=== PATIENT | female | born 1970 | race Caucasian/White ===

== ENCOUNTER → 2017-02-10 | Outpatient (CLI) | payer MEDICARE, OTHER ==
[2017-02-10 12:58] LABS: CH 31.7; CHCM 33.7; HCT 41.7 % (34.0-46.0); HDW 2.56; MCH 31.7 pg (25.0-35.0); MCHC 33.6 g/dL (31.0-37.0); MCV 94.5 fL (80.0-100.0); Mean Platelet Volume 6.7; RBC 4.41 m/uL (3.80-5.40); RDW 13.7 % (11.5-15.5); WBC 8.6 k/uL (3.8-10.6)
[2017-02-10 13:07] LABS: Anion Gap 8 mmol/L; Blood Urea Nitrogen 14 mg/dL (7-17); Carbon Dioxide 30 mmol/L (22-30); Chloride 107 mmol/L (98-107); Non-African American GFR(MDRD) >60 (>60 ml/min/1.73 sqM); Potassium 4.7 mmol/L (3.5-5.1); Sodium 145 mmol/L (137-145)
== END | disposition home or self-care (01) ==
LOC: LABWHC1 11:42
PROVIDERS: ATTEND Internal Medicine
DX: Z13.89 Encounter for screening for other disorder (principal)
CPT/HCPCS: 36415; 80051; 82565; 84520; 85027; 86850

== ENCOUNTER → 2017-02-19 | Outpatient (CLI) | payer MEDICARE, OTHER ==
--- NOTE | 2017-02-19 14:46 | CT ---
EXAMINATION TYPE: CT abdomen pelvis w con DATE OF EXAM: 02/19/2017 HISTORY abdominal and pelvic pain per order. Left-sided pain per patient. CT DLP: 1520mGycm Automated Exposure Control for Dose Reduction was Utilized. CONTRAST: CT scan of the abdomen and pelvis is performed with oral and with IV Contrast, patient injected with 100 mL of Omnipaque 300. COMPARISON: CT abdomen pelvis July 31, 2014. FINDINGS: LUNG BASES: No significant abnormality is appreciated. LIVER/GB: Cholecystectomy clips are now present. Liver remains diffusely low dense suggesting fatty i nfiltration. PANCREAS: No significant abnormality is seen. SPLEEN: No significant abnormality is seen. ADRENALS: There is redemonstration of 1.8 cm heterogeneous left adrenal mass, perhaps minimally enlar ged in size from prior study, still favored or presumed benign in etiology. This can BE confirmed wit h adrenal protocol CT or MRI study if desired. KIDNEYS: There is persistent asymmetric diminished size to right kidney versus left kidney in cranioc audal length. Right kidney is increased AP diameter suggesting it is oblique in position. There is sy mmetric cortical medullary uptake and excretion from both kidneys with increased fullness in right re nal pelvis but no suspicious calyceal dilatation, favor extrarenal pelvis. Bladder is distended in th e midline of the pelvis extending into the anterior upper abdomen and likely accounting for increased renal pelvic fullness bilaterally. BOWEL: The oral contrast reaches level of the hepatic flexure. There is no suspicious small or large bowel dilatation. There is single focal area of concentric wall thickening in the colon near level of the splenic flexure in the distal transverse colon on coronal image 28, this could reflect focal spa sm but neoplasm cannot be excluded. Advise colonoscopy follow-up. Finding is new from prior study. UTERUS/ADNEXA: Uterus is surgically absent. Occasional pelvic phleboliths are redemonstrated LYMPH NODES: No greater than 1cm abdominal or pelvic lymph nodes are appreciated. OSSEOUS STRUCTURES: No significant abnormality is seen. OTHER: No significant additional abnormality is seen. IMPRESSION: 1. No significant acute finding is seen to account for patient's symptoms. 2. Attention to left adrenal gland and distal transverse colon as detailed above.
== END | disposition home or self-care (01) ==
LOC: RADCTMAIN 13:30
PROVIDERS: ATTEND Internal Medicine
DX: E27.9 Disorder of adrenal gland, unspecified (principal); R10.9 Unspecified abdominal pain
CPT/HCPCS: 74177; Q9967

== ENCOUNTER 2017-03-09 09:28 | Day surgery (SDC) | payer MEDICARE, OTHER ==
[~2017-03-09 09:28] MED LIST: LACTATED RINGERS 1,000 ML IV SCH
[2017-03-09 10:42] VITALS: TEMP 98.6
[2017-03-09] MEDS ORDERED: LIDOCAINE 1% 20 ML VIAL (10MG/ML) FOR IV START INTRADERMA ONE (11:12)
[2017-03-09] MEDS ORDERED: fentaNYL (PF) 50 MCG/ML 2 ML AMP ONE (11:25)
[2017-03-09] MEDS ORDERED: PROPOFOL 10 MG/ML 20 ML VIAL IV ONE (11:25)
[2017-03-09] MEDS ORDERED: LIDOCAINE 1% INJ 10MG/ML (20 ML MDV) ONE (11:25)
--- NOTE | 2017-03-09 11:51 | P.PCN ---
Date of Procedure: 03/09/17 Preoperative Diagnosis: Postoperative Diagnosis: Procedure(s) Performed: Procedure: Total colonoscopy. Preoperative diagnosis: Abdominal pain, change in bowel habits and abnormal CT of the abdomen. Postoperative diagnosis: Sigmoid diverticulosis with no evidence of acute diverticulitis, strictures, polyps or cancer. Preparation: HalfLytely prep. Sedation: Was provided by anesthesia. Brief clinical history: The patient is a 46-year-old female who is referred for this evaluation because of abdominal pain and change in bowel habits and the finding of abnormality around the splenic flexure on CT. The patient, apparently, has been having abdominal pain since her gallbladder surgery 3 or 4 years ago and she has been having small stools. I have performed an upper endoscopy in September 2014 for abdominal pain and reflux symptoms and that showed mild gastritis and duodenitis and small sliding hiatal hernia. Procedure: With the patient on her left lateral decubitus position and after informed consent and adequate sedation, the perianal area was inspected and it did not show any fissures or fistulas. There were no masses felt on digital rectal examination. The Olympus CFQ 160L video colonoscope was then inserted in the rectum in the usual fashion and advanced to the cecum. There were a few small diverticular orifices seen scattered in the sigmoid but I saw no evidence of acute diverticulitis or strictures. The area of abnormality on CT around the splenic flexure appeared completely normal on this exam today. No polyps or tumors were seen. The mucosa appeared healthy. I retroflexed the endoscope in the rectum before the endoscope was withdrawn. The patient tolerated the procedure well. Plan: The patient was reassured. Discussed dietary measures. She will follow- up with you as planned. Further plans based on her course. Implants: Indications for Procedure: Operative Findings: Description of Procedure:
[2017-03-09 11:56] VITALS: RESP 18
[2017-03-09 12:14] VITALS: BP 133/86; PULSE 74
== END 2017-03-09 12:43 | disposition home or self-care (01) ==
LOC: ORWHC2ENDO 09:28
DX: K57.30 Diverticulosis of large intestine without perforation or abscess without bleeding (principal); J44.9 Chronic obstructive pulmonary disease, unspecified; I25.10 Atherosclerotic heart disease of native coronary artery without angina pectoris; K21.9 Gastro-esophageal reflux disease without esophagitis; G47.33 Obstructive sleep apnea (adult) (pediatric); Z79.52 Long term (current) use of systemic steroids; Z79.899 Other long term (current) drug therapy; Z88.6 Allergy status to analgesic agent; Z88.0 Allergy status to penicillin
CPT/HCPCS: 45378; J2001; J3010; J2704

== ENCOUNTER 2017-04-11 03:07 | Emergency (ER) | payer MEDICARE, OTHER ==
[2017-04-11 04:04] LABS: Appearance,Urine Clear (Clear); Basophils # (A) 0.1 k/uL (0-0.2); Basophils % (A) 1 %; Bilirubin,Urine Negative (Negative); CH 32.4; CHCM 34.9; Eosinophils # (A) 0.2 k/uL (0-0.7); Eosinophils % (A) 2 %; Glucose,Urine (UA) Negative (Negative); HCT 44.2 % (34.0-46.0); HDW 2.42; HGB 14.9 gm/dL (11.4-16.0); Ketones,Urine Negative (Negative); Leukocyte Esterase,Urine Negative (Negative); Luc # (Auto) 0.24; Luc % (Auto) 2; Lymphocytes # (A) 3.2 k/uL (1.0-4.8); Lymphocytes % (A) 31 %; MCH 31.4 pg (25.0-35.0); MCHC 33.7 g/dL (31.0-37.0); MCV 93.2 fL (80.0-100.0); Mean Platelet Volume 7.4; Monocytes # (A) 0.4 k/uL (0-1.0); Monocytes % (A) 4 %; Neutrophils % (A) 60 %; Nitrite,Urine Negative (Negative); PH, Urine 5.5 (5.0-8.0); Protein,Urine Negative (Negative); RBC 4.75 m/uL (3.80-5.40); RDW 14.3 % (11.5-15.5); Specific Gravity,Urine 1.007 (1.001-1.035); UA Billing (MACRO vs. MICRO) CHEM; Urobilinogen,Urine <2.0 mg/dL (<2.0); WBC 10.1 k/uL (3.8-10.6); WBC (Perox) 9.74
[2017-04-11 04:13] LABS: ALT 59 U/L (9-52); AST 45 U/L (14-36); Alkaline Phosphatase 73 U/L (38-126); Amylase 72 U/L (30-110); Anion Gap 13 mmol/L; Blood Urea Nitrogen 12 mg/dL (7-17); Carbon Dioxide 21 mmol/L (22-30); Chloride 108 mmol/L (98-107); Glucose 119 mg/dL (74-99); Non-African American GFR(MDRD) >60 (>60 ml/min/1.73 sqM); Potassium 4.9 mmol/L (3.5-5.1); Sodium 142 mmol/L (137-145); Total Bilirubin 0.8 mg/dL (0.2-1.3); Total Protein 8.2 g/dL (6.3-8.2)
--- NOTE | 2017-04-11 04:35 | XR ---
EXAM: XR Abdomen Complete, 2 or More Views CLINICAL HISTORY: Abdominal pain. Left flank pain after colonoscopy in February 2017. Diarrhea. History of appendectomy, hysterectomy. TECHNIQUE: 2 frontal upright views of the abdomen. COMPARISON: None FINDINGS: Intraperitoneal space: No free air. Gastrointestinal tract: Unremarkable. No dilation. Organs: Surgical clips are visualized within the right upper quadrant from cholecystectomy. Bones/joints: Unremarkable. IMPRESSION: No acute findings.
[2017-04-11] MEDS ORDERED: ONDANSETRON 4 MG/2 ML VIAL IVP STA (05:36)
[2017-04-11] MEDS ORDERED: MORPHINE SULFATE 4 MG/ML SYRINGE IV STA ×2 (05:36→07:27)
--- NOTE | 2017-04-11 06:10 | CT ---
EXAM: CT ABDOMEN + PELVIS Without Contrast INDICATION: 46 year-old female with lower quadrant pain. COMPARISON: 02/19/2017. TECHNIQUE: Multiple axial CT images of the abdomen and pelvis without contrast material. Reformatted coronal and sagittal images are submitted. DOSE: CTDI is 15.4 mGy and DLP is 733.7 mGy-cm. DOSE REDUCTION: This CT exam was performed using one or more of the following dose reduction techniques: automated exposure control, adjustment of the mA and/or kV according to patient size, and/or use of iterative reconstruction technique. FINDINGS: The lung bases are clear. The liver and spleen are normal in size and free of mass lesions. Stable size and appearance of the left adrenal nodule. The gallbladder is surgically absent. The right adrenal gland is unremarkable. There is suggestion of a right extrarenal pelvis. The kidneys are otherwise normal in size and contour. No stones, lesions or hydronephrosis. The appendix is well-visualized. The remainder of the GI tract is unremarkable. Arterial calcifications. No aneurysm. No adenopathy or extraluminal air. The osseous structures are intact. Surgical change of hysterectomy. IMPRESSION: 1. No acute abdominal pelvic abnormality. 2. Stable in size and appearance of the left adrenal nodule. 3. Cholecystectomy and hysterectomy..
--- NOTE | 2017-04-11 07:06 | ED ---
Abdominal Pain HPI - General Chief Complaint: Abdominal Pain Stated Complaint: Back/Flank Pain Time Seen by Provider: 04/11/17 04:45 Source: patient Mode of arrival: ambulatory Limitations: no limitations - Related Data Home Medications Medication Instructions Recorded Confirmed Ranitidine HCl [Zantac] 150 mg PO BID 05/29/14 04/11/17 Beclomethasone Dipropionate [Qvar 2 puff INHALATION RT-BID 05/11/16 04/11/17 80 mcg/puff] EPINEPHrine (Auto Inject) [Epipen] 0.3 mg IM ONCE PRN 05/11/16 04/11/17 Nitroglycerin Sl Tabs [Nitrostat] 0.4 mg SUBLINGUAL Q5H PRN 05/11/16 04/11/17 Loratadine [Claritin] 10 mg PO HS 03/04/17 04/11/17 Previous Rx's Medication Instructions Recorded Dicyclomine [Bentyl] 20 mg PO QID #15 tablet 04/11/17 Allergies Allergy/AdvReac Type Severity Reaction Status Date / Time venom-honey bee Allergy Severe Anaphylaxis Verified 04/11/17 03:32 [bee venom (honey bee)] amoxicillin [Amoxicillin] Allergy Anaphylaxis Verified 04/11/17 03:32 aspirin Allergy Anaphylaxis Verified 04/11/17 03:32 chocolate flavor Allergy Swelling Verified 04/11/17 03:32 hydrocodone [From [place]] Allergy Rash/Hives Verified 04/11/17 03:32 NSAIDS (Non-Steroidal Allergy Swelling Verified 04/11/17 03:32 Anti-Inflamma Penicillins Allergy Anaphylaxis Verified 04/11/17 03:32 prednisone Allergy Anaphylaxis Verified 04/11/17 03:32 propoxyphene napsylate Allergy Rash/Hives Verified 04/11/17 03:32 [From Darvocet-N] strawberry [[place]] Allergy Swelling Verified 04/11/17 03:32 tomato [Tomato] Allergy Swelling Verified 04/11/17 03:32 zonisamide [From Zonegran] Allergy Swelling Verified 04/11/17 03:32 Review of Systems ROS Statement: Those systems with pertinent positive or pertinent negative responses have been documented in the HPI. ROS Other: All systems not noted in ROS Statement are negative. Past Medical History Past Medical History: Asthma, COPD, GERD/Reflux, Sleep Apnea/CPAP/BIPAP, Thyroid Disorder Additional Past Medical History / Comment(s): OVARIAN CYST. USES NO CPAP. CHonic back pain (buldging discs). Hiatal hernia. MIGRAINES. History of Any Multi-Drug Resistant Organisms: MRSA Date of last positivie culture/infection: 08/13/2007 MDRO Source:: LEFT KNEE Past Surgical History: Appendectomy, Breast Surgery, Cholecystectomy, Hysterectomy, Joint Replacement, Orthopedic Surgery Additional Past Surgical History / Comment(s): Total of 13 surgeries on her L knee including lt knee replacement x 3, lt leg contains rods, L benign breast mass removed, EGD with BX Past Anesthesia/Blood Transfusion Reactions: No Reported Reaction Additional Past Anesthesia/Blood Transfusion Reaction / Comment(s): Pt received blood with one of her L knee surgeries without reaction X 2. Past Psychological History: No Psychological Hx Reported Smoking Status: Current every day smoker Past Alcohol Use History: None Reported Past Drug Use History: None Reported - Past Family History Mother Family Medical History: Deep Vein Thrombosis (DVT) Additional Family Medical History / Comment(s): Mother of a blood clot that went to her heart. Father Family Medical History: No Reported History Additional Family Medical History / Comment(s): Father of "natural causes" at the age of 85 yrs. General Exam Limitations: no limitations Course Vital Signs 04/11/17 04/11/17 03:28 05:44 Temperature 98.4 F 98.7 F Pulse Rate 96 86 Respiratory 18 16 Rate Blood Pressure 145/65 146/65 O2 Sat by Pulse 98 98 Oximetry Medical Decision Making - Lab Data Result diagrams: 04/11/17 03:39 04/11/17 03:39 Lab Results 04/11/17 04/11/17 04/11/17 Range/Units 03:39 03:39 03:39 WBC 10.1 (3.8-10.6) k/uL RBC 4.75 (3.80-5.40) m/uL Hgb 14.9 (11.4-16.0) gm/dL Hct 44.2 (34.0-46.0) % MCV 93.2 (80.0-100.0) fL MCH 31.4 (25.0-35.0) pg MCHC 33.7 (31.0-37.0) g/dL RDW 14.3 (11.5-15.5) % Plt Count 273 (150-450) k/uL Neutrophils % 60 % Lymphocytes % 31 % Monocytes % 4 % Eosinophils % 2 % Basophils % 1 % Neutrophils # 6.0 (1.3-7.7) k/uL Lymphocytes # 3.2 (1.0-4.8) k/uL Monocytes # 0.4 (0-1.0) k/uL Eosinophils # 0.2 (0-0.7) k/uL Basophils # 0.1 (0-0.2) k/uL Sodium 142 (137-145) mmol/L Potassium 4.9 (3.5-5.1) mmol/L Chloride 108 H (98-107) mmol/L Carbon Dioxide 21 L (22-30) mmol/L Anion Gap 13 mmol/L BUN 12 (7-17) mg/dL Creatinine 0.70 (0.52-1.04) mg/dL Est GFR (MDRD) Af Amer >60 (>60 ml/min/1.73 sqM) Est GFR (MDRD) Non-Af >60 (>60 ml/min/1.73 sqM) Glucose 119 H (74-99) mg/dL Calcium 10.0 (8.4-10.2) mg/dL Total Bilirubin 0.8 (0.2-1.3) mg/dL AST 45 H (14-36) U/L ALT 59 H (9-52) U/L Alkaline Phosphatase 73 (38-126) U/L Total Protein 8.2 (6.3-8.2) g/dL Albumin 4.8 (3.5-5.0) g/dL Amylase 72 (30-110) U/L Lipase 139 (23-300) U/L Urine Color Urine Appearance (Clear) Urine pH (5.0-8.0) Ur Specific [place] (1.001-1.035) Urine Protein (Negative) Urine Glucose (UA) (Negative) Urine Ketones (Negative) Urine Blood (Negative) Urine Nitrite (Negative) Urine Bilirubin (Negative) Urine Urobilinogen (<2.0) mg/dL Ur Leukocyte Esterase (Negative) Urine HCG, Qual Not Detected (Not Detectd) 04/11/17 Range/Units 03:39 WBC (3.8-10.6) k/uL RBC (3.80-5.40) m/uL Hgb (11.4-16.0) gm/dL Hct (34.0-46.0) % MCV (80.0-100.0) fL MCH (25.0-35.0) pg MCHC (31.0-37.0) g/dL RDW (11.5-15.5) % Plt Count (150-450) k/uL Neutrophils % % Lymphocytes % % Monocytes % % Eosinophils % % Basophils % % Neutrophils # (1.3-7.7) k/uL Lymphocytes # (1.0-4.8) k/uL Monocytes # (0-1.0) k/uL Eosinophils # (0-0.7) k/uL Basophils # (0-0.2) k/uL Sodium (137-145) mmol/L Potassium (3.5-5.1) mmol/L Chloride (98-107) mmol/L Carbon Dioxide (22-30) mmol/L Anion Gap mmol/L BUN (7-17) mg/dL Creatinine (0.52-1.04) mg/dL Est GFR (MDRD) Af Amer (>60 ml/min/1.73 sqM) Est GFR (MDRD) Non-Af (>60 ml/min/1.73 sqM) Glucose (74-99) mg/dL Calcium (8.4-10.2) mg/dL Total Bilirubin (0.2-1.3) mg/dL AST (14-36) U/L ALT (9-52) U/L Alkaline Phosphatase (38-126) U/L Total Protein (6.3-8.2) g/dL Albumin (3.5-5.0) g/dL Amylase (30-110) U/L Lipase (23-300) U/L Urine Color Yellow Urine Appearance Clear (Clear) Urine pH 5.5 (5.0-8.0) Ur Specific [place] 1.007 (1.001-1.035) Urine Protein Negative (Negative) Urine Glucose (UA) Negative (Negative) Urine Ketones Negative (Negative) Urine Blood Negative (Negative) Urine Nitrite Negative (Negative) Urine Bilirubin Negative (Negative) Urine Urobilinogen <2.0 (<2.0) mg/dL Ur Leukocyte Esterase Negative (Negative) Urine HCG, Qual (Not Detectd) Disposition Clinical Impression: Abdominal pain Disposition: HOME SELF-CARE Condition: Good Instructions: Abdominal Pain (ED) Prescriptions: Dicyclomine [Bentyl] 20 mg PO QID #15 tablet Referrals: Paula Hudson MD [Primary Care Provider] - 1-2 days
[2017-04-11 08:10] VITALS: BP 135/60; PULSE 88; RESP 20; TEMP 97.7
== END 2017-04-11 08:14 | disposition home or self-care (01) ==
LOC: EC 03:07
DX: R10.9 Unspecified abdominal pain (principal); J44.9 Chronic obstructive pulmonary disease, unspecified; K21.9 Gastro-esophageal reflux disease without esophagitis; F17.200 Nicotine dependence, unspecified, uncomplicated; Z90.49 Acquired absence of other specified parts of digestive tract; Z91.018 Allergy to other foods; Z88.0 Allergy status to penicillin; Z88.6 Allergy status to analgesic agent; Z91.030 Bee allergy status; Z88.5 Allergy status to narcotic agent; Z88.8 Allergy status to other drugs, medicaments and biological substances; Z91.02 Food additives allergy status; Z79.51 Long term (current) use of inhaled steroids; Z79.899 Other long term (current) drug therapy
CPT/HCPCS: 36415; 80053; 82150; 83690; 85025; 81003; 81025; 74000; 74176; 99284; 96374; 96376; 96375; J2270; J2405

== ENCOUNTER 2017-04-11 18:36 | Observation (INO) | payer MEDICARE, OTHER ==
[2017-04-11] MEDS ORDERED: MORPHINE SULFATE 4 MG/ML SYRINGE IVP STA (20:17)
[2017-04-11] MEDS ORDERED: SODIUM CHLORIDE 0.9% 1,000 ML IV ONE (20:17)
[2017-04-11] MEDS ORDERED: ONDANSETRON 4 MG/2 ML VIAL IVP STA (20:17)
--- NOTE | 2017-04-11 20:19 | ED ---
Abdominal Pain HPI - General Chief Complaint: Abdominal Pain Stated Complaint: abd and back pain Time Seen by Provider: 04/11/17 20:01 Source: patient, RN notes reviewed Mode of arrival: ambulatory Limitations: no limitations - History of Present Illness Initial Comments: Patient is a 46-year-old female presents to the emergency room for evaluation of abdominal pain. patient states she has a history of left lower quadrant pain. Patient states she had a colonoscopy in mid February due to pain by Dr. Valdes. Patient states ever since she's been having worsening pain along with diarrhea. Patient states that she has not followed up with Dr. Valdes regarding her pain since the colonoscopy. Patient states she came here this morning with pain. Patient states they did a CT of abdomen/pelvis and blood work and sent her home. Patient states she is having worsening pain and is now having nausea and vomiting. Patient states she is having on and off chills. Patient states she's been having on and off diarrhea. Patient denies chest pain or shortness of breath. Patient denies dizziness. Patient states she has a history of cholecystectomy, appendectomy and total hysterectomy. Patient denies history of bowel obstructions. - Related Data Home Medications Medication Instructions Recorded Confirmed Ranitidine HCl [Zantac] 150 mg PO BID 05/29/14 04/11/17 Beclomethasone Dipropionate [Qvar 2 puff INHALATION RT-BID 05/11/16 04/11/17 80 mcg/puff] EPINEPHrine (Auto Inject) [Epipen] 0.3 mg IM ONCE PRN 05/11/16 04/11/17 Nitroglycerin Sl Tabs [Nitrostat] 0.4 mg SUBLINGUAL Q5H PRN 05/11/16 04/11/17 Loratadine [Claritin] 10 mg PO DAILY PRN 03/04/17 04/11/17 Allergies Allergy/AdvReac Type Severity Reaction Status Date / Time venom-honey bee Allergy Severe Anaphylaxis Verified 04/11/17 20:03 [bee venom (honey bee)] amoxicillin [Amoxicillin] Allergy Anaphylaxis Verified 04/11/17 20:03 aspirin Allergy Anaphylaxis Verified 04/11/17 20:03 chocolate flavor Allergy Swelling Verified 04/11/17 20:03 hydrocodone [From [place]] Allergy Rash/Hives Verified 04/11/17 20:03 NSAIDS (Non-Steroidal Allergy Swelling Verified 04/11/17 20:03 Anti-Inflamma Penicillins Allergy Anaphylaxis Verified 04/11/17 20:03 prednisone Allergy Anaphylaxis Verified 04/11/17 20:03 propoxyphene napsylate Allergy Rash/Hives Verified 04/11/17 20:03 [From Darvocet-N] strawberry [[place]] Allergy Swelling Verified 04/11/17 20:03 tomato [Tomato] Allergy Swelling Verified 04/11/17 20:03 zonisamide [From Zonegran] Allergy Swelling Verified 04/11/17 20:03 Review of Systems ROS Statement: Those systems with pertinent positive or pertinent negative responses have been documented in the HPI. ROS Other: All systems not noted in ROS Statement are negative. Past Medical History Past Medical History: Asthma, COPD, GERD/Reflux, Sleep Apnea/CPAP/BIPAP, Thyroid Disorder Additional Past Medical History / Comment(s): OVARIAN CYST. USES NO CPAP. CHonic back pain (buldging discs). Hiatal hernia. MIGRAINES. History of Any Multi-Drug Resistant Organisms: MRSA Date of last positivie culture/infection: 08/13/2007 MDRO Source:: LEFT KNEE Past Surgical History: Appendectomy, Breast Surgery, Cholecystectomy, Hysterectomy, Joint Replacement, Orthopedic Surgery Additional Past Surgical History / Comment(s): Total of 13 surgeries on her L knee including lt knee replacement x 3, lt leg contains rods, L benign breast mass removed, EGD with BX Past Anesthesia/Blood Transfusion Reactions: No Reported Reaction Additional Past Anesthesia/Blood Transfusion Reaction / Comment(s): Pt received blood with one of her L knee surgeries without reaction X 2. Past Psychological History: No Psychological Hx Reported Smoking Status: Current every day smoker Past Alcohol Use History: None Reported Past Drug Use History: None Reported - Past Family History Mother Family Medical History: Deep Vein Thrombosis (DVT) Additional Family Medical History / Comment(s): Mother of a blood clot that went to her heart. Father Family Medical History: No Reported History Additional Family Medical History / Comment(s): Father of "natural causes" at the age of 85 yrs. General Exam - General Exam Comments Initial Comments: Laying in exam room, no acute distress. Limitations: no limitations General appearance: alert, in no apparent distress Head exam: Present: atraumatic, normocephalic, normal inspection Eye exam: Present: normal appearance ENT exam: Present: normal exam Neck exam: Present: normal inspection Respiratory exam: Present: normal lung sounds bilaterally. Absent: respiratory distress Cardiovascular Exam: Present: regular rate, normal rhythm, normal heart sounds GI/Abdominal exam: Present: soft, tenderness (LUQ/LLQ), normal bowel sounds. Absent: distended, guarding, rebound, rigid Extremities exam: Present: normal inspection Back exam: Present: normal inspection Neurological exam: Present: alert, oriented X3, CN II-XII intact, normal gait Psychiatric exam: Present: normal affect, normal mood Skin exam: Present: warm, dry, intact, normal color. Absent: rash Course Vital Signs 04/11/17 04/11/17 18:51 21:53 Temperature 97.5 F L 97.5 F L Pulse Rate 90 77 Respiratory 20 16 Rate Blood Pressure 127/60 136/60 O2 Sat by Pulse 98 Oximetry Medical Decision Making - Medical Decision Making Patient is a 46-year-old female presents to the emergency room for evaluation of abdominal pain. Patient was seen this morning and was sent home. Today, she is having worsening pain associated with nausea and vomiting. Liver enzymes and amylase/lipase are elevated compared to this morning. Case discussed Dr. Sheppard. Dr. Sheppard discussed case with Dr. Pedroza who agreed to admit patient for pancreatitis/failed outpatient treatment. - Lab Data Result diagrams: 04/11/17 20:50 04/11/17 20:50 Lab Results 04/11/17 04/11/17 04/11/17 Range/Units 20:37 20:50 20:50 WBC 9.4 (3.8-10.6) k/uL RBC 4.92 (3.80-5.40) m/uL Hgb 15.4 (11.4-16.0) gm/dL Hct 46.2 H (34.0-46.0) % MCV 93.9 (80.0-100.0) fL MCH 31.2 (25.0-35.0) pg MCHC 33.3 (31.0-37.0) g/dL RDW 14.2 (11.5-15.5) % Plt Count 277 (150-450) k/uL Neutrophils % 68 % Lymphocytes % 23 % Monocytes % 4 % Eosinophils % 2 % Basophils % 1 % Neutrophils # 6.5 (1.3-7.7) k/uL Lymphocytes # 2.2 (1.0-4.8) k/uL Monocytes # 0.4 (0-1.0) k/uL Eosinophils # 0.2 (0-0.7) k/uL Basophils # 0.1 (0-0.2) k/uL Sodium 143 (137-145) mmol/L Potassium 4.5 (3.5-5.1) mmol/L Chloride 107 (98-107) mmol/L Carbon Dioxide 24 (22-30) mmol/L Anion Gap 12 mmol/L BUN 13 (7-17) mg/dL Creatinine 0.80 (0.52-1.04) mg/dL Est GFR (MDRD) Af Amer >60 (>60 ml/min/1.73 sqM) Est GFR (MDRD) Non-Af >60 (>60 ml/min/1.73 sqM) Glucose 103 H (74-99) mg/dL Calcium 10.1 (8.4-10.2) mg/dL Magnesium 2.2 (1.6-2.3) mg/dL Total Bilirubin 0.7 (0.2-1.3) mg/dL AST 271 H (14-36) U/L ALT 264 H (9-52) U/L Alkaline Phosphatase 109 (38-126) U/L Total Protein 8.1 (6.3-8.2) g/dL Albumin 4.7 (3.5-5.0) g/dL Amylase 165 H (30-110) U/L Lipase 806 H (23-300) U/L Urine Color Yellow Urine Appearance Cloudy H (Clear) Urine pH 5.5 (5.0-8.0) Ur Specific [place] 1.024 (1.001-1.035) Urine Protein 1+ H (Negative) Urine Glucose (UA) Negative (Negative) Urine Ketones Negative (Negative) Urine Blood Negative (Negative) Urine Nitrite Negative (Negative) Urine Bilirubin Negative (Negative) Urine Urobilinogen 3.0 (<2.0) mg/dL Ur Leukocyte Esterase Negative (Negative) Urine RBC 1 (0-5) /hpf Urine WBC 2 (0-5) /hpf Ur Squamous Epith Cells 2 (0-4) /hpf Hyaline Casts 2 (0-2) /lpf Urine Mucus Few H (None) /hpf Disposition Clinical Impression: Failure of outpatient treatment, Pancreatitis Disposition: ADMITTED IP TO THIS HOSP Condition: Stable Referrals: Paula Hudson MD [Primary Care Provider] - 1-2 days Decision Date: 04/11/17
[2017-04-11 20:50] LABS: Appearance,Urine Cloudy (Clear); Bilirubin,Urine Negative (Negative); Glucose,Urine (UA) Negative (Negative); Ketones,Urine Negative (Negative); Leukocyte Esterase,Urine Negative (Negative); Mucus,Urine Few /hpf; Nitrite,Urine Negative (Negative); PH, Urine 5.5 (5.0-8.0); Particle Count 9982; Protein,Urine 1+ (Negative); RBC,Urine 1 /hpf (0-5); Specific Gravity,Urine 1.024 (1.001-1.035); Squamous Epithelial Cell,Urine 2 /hpf (0-4); UA Billing (MACRO vs. MICRO) MICRO; WBC,Urine 2 /hpf (0-5)
[2017-04-11 21:06] LABS: Basophils # (A) 0.1 k/uL (0-0.2); Basophils % (A) 1 %; CH 32.3; CHCM 34.5; Eosinophils # (A) 0.2 k/uL (0-0.7); Eosinophils % (A) 2 %; HCT 46.2 % (34.0-46.0); HDW 2.45; HGB 15.4 gm/dL (11.4-16.0); Luc # (Auto) 0.11; Luc % (Auto) 1; Lymphocytes # (A) 2.2 k/uL (1.0-4.8); Lymphocytes % (A) 23 %; MCH 31.2 pg (25.0-35.0); MCHC 33.3 g/dL (31.0-37.0); MCV 93.9 fL (80.0-100.0); Mean Platelet Volume 7.7; Monocytes # (A) 0.4 k/uL (0-1.0); Monocytes % (A) 4 %; Neutrophils # (A) 6.5 k/uL (1.3-7.7); Neutrophils % (A) 68 %; RBC 4.92 m/uL (3.80-5.40); RDW 14.2 % (11.5-15.5); WBC 9.4 k/uL (3.8-10.6); WBC (Perox) 9.83
[2017-04-11 21:16] LABS: ALT 264 U/L (9-52); AST 271 U/L (14-36); Alkaline Phosphatase 109 U/L (38-126); Amylase 165 U/L (30-110); Anion Gap 12 mmol/L; Blood Urea Nitrogen 13 mg/dL (7-17); Calcium 10.1 mg/dL (8.4-10.2); Carbon Dioxide 24 mmol/L (22-30); Chloride 107 mmol/L (98-107); Glucose 103 mg/dL (74-99); Magnesium 2.2 mg/dL (1.6-2.3); Non-African American GFR(MDRD) >60 (>60 ml/min/1.73 sqM); Potassium 4.5 mmol/L (3.5-5.1); Sodium 143 mmol/L (137-145); Total Bilirubin 0.7 mg/dL (0.2-1.3); Total Protein 8.1 g/dL (6.3-8.2)
[2017-04-11] MEDS ORDERED: NALOXONE 0.4 MG/ML 1 ML VIAL IV PRN (21:46)
[2017-04-11] MEDS: SODIUM CHLORIDE 0.9% 1,000 ML IV SCH (21:52)
[2017-04-12] MEDS: MORPHINE SULFATE 4 MG/ML SYRINGE IV PRN ×5 (00:03→22:22)
[2017-04-12] MEDS: ONDANSETRON 4 MG/2 ML VIAL IVP PRN ×2 (06:06→17:35)
[2017-04-12 07:06] LABS: Amylase 75 U/L (30-110)
[2017-04-12] MEDS: SODIUM CHLORIDE 0.9% 1,000 ML IV SCH ×2 (08:00→17:36)
[2017-04-12] MEDS: NICOTINE 21MG/24HR PATCH TRANSDERM SCH (13:04)
[2017-04-12] MEDS ORDERED: LORATADINE 10 MG TAB PO PRN (13:27)
--- NOTE | 2017-04-12 13:34 | P.HPIM ---
History of Present Illness H&P Date: 04/12/17 Chief Complaint: Abdominal pain This is a 46-year-old female with history of chronic abdominal pain left-sided for the last 2-3 years intermittent in nature states that she has had done about 3-4 loose stools over the same period of time Patient states that over the last few days her pain has been significantly worse on the left side she was seen in the emergency room 2 days ago was noted to have nonspecific elevation of liver enzymes Denies having any exposure to alcohol or any other drugs Patient comes back in the hospital with worsening pain and loose stools and inability to tolerate any food Patient gets tearful during our conversation multiple times Patient was evaluated with a colonoscopy about 2 weeks ago states that her abdominal pain has worsened since then states that she has had watery stools lower is normal for her for the last 3 years Denies having any feelings of hopelessness or suicidal or homicidal ideation Review of Systems All systems: negative (Noted in HPI) Past Medical History Past Medical History: Asthma, COPD, GERD/Reflux, Sleep Apnea/CPAP/BIPAP, Thyroid Disorder Additional Past Medical History / Comment(s): OVARIAN CYST. USES NO CPAP. CHonic back pain (buldging discs). Hiatal hernia. MIGRAINES. History of Any Multi-Drug Resistant Organisms: MRSA Date of last positivie culture/infection: 08/13/2007 MDRO Source:: LEFT KNEE Past Surgical History: Appendectomy, Breast Surgery, Cholecystectomy, Hysterectomy, Joint Replacement, Orthopedic Surgery Additional Past Surgical History / Comment(s): Total of 13 surgeries on her L knee including lt knee replacement x 3, lt leg contains rods, L benign breast mass removed, EGD with BX, right foot tendon release Past Anesthesia/Blood Transfusion Reactions: No Reported Reaction Additional Past Anesthesia/Blood Transfusion Reaction / Comment(s): Pt received blood with one of her L knee surgeries without reaction X 2. Past Psychological History: No Psychological Hx Reported Additional Psychological History / Comment(s): USES CANE Smoking Status: Current every day smoker Past Alcohol Use History: None Reported Additional Past Alcohol Use History / Comment(s): Pt started smoking in 1986 and is a 1.5 ppd smoker. Past Drug Use History: None Reported - Past Family History Mother Family Medical History: Deep Vein Thrombosis (DVT) Additional Family Medical History / Comment(s): Mother of a blood clot that went to her heart. Father Family Medical History: No Reported History Additional Family Medical History / Comment(s): Father of "natural causes" at the age of 85 yrs. Medications and Allergies Home Medications Medication Instructions Recorded Confirmed Type Ranitidine HCl [Zantac] 150 mg PO BID 05/29/14 04/11/17 History Beclomethasone Dipropionate [Qvar 2 puff INHALATION RT-BID 05/11/16 04/11/17 History 80 mcg/puff] EPINEPHrine (Auto Inject) [Epipen] 0.3 mg IM ONCE PRN 05/11/16 04/11/17 History Nitroglycerin Sl Tabs [Nitrostat] 0.4 mg SUBLINGUAL Q5H PRN 05/11/16 04/11/17 History Loratadine [Claritin] 10 mg PO DAILY PRN 03/04/17 04/11/17 History Allergies Allergy/AdvReac Type Severity Reaction Status Date / Time venom-honey bee Allergy Severe Anaphylaxis Verified 04/11/17 23:57 [bee venom (honey bee)] amoxicillin [Amoxicillin] Allergy Anaphylaxis Verified 04/11/17 23:57 aspirin Allergy Anaphylaxis Verified 04/11/17 23:57 chocolate flavor Allergy Swelling Verified 04/11/17 23:57 hydrocodone [From [place]] Allergy Rash/Hives Verified 04/11/17 23:57 NSAIDS (Non-Steroidal Allergy Swelling Verified 04/11/17 23:57 Anti-Inflamma Penicillins Allergy Anaphylaxis Verified 04/11/17 23:57 prednisone Allergy Anaphylaxis Verified 04/11/17 23:57 propoxyphene napsylate Allergy Rash/Hives Verified 04/11/17 23:57 [From Darvocet-N] strawberry [[place]] Allergy Swelling Verified 04/11/17 23:57 tomato [Tomato] Allergy Swelling Verified 04/11/17 23:57 zonisamide [From Zonegran] Allergy Swelling Verified 04/11/17 23:57 Physical Exam Vitals: Vital Signs Temp Pulse Pulse Resp BP BP Pulse Ox 04/12/17 07:00 98.0 F 79 20 105/65 96 04/12/17 01:38 97.9 F 76 16 98/59 93 L 04/11/17 23:35 97.9 F 82 110/81 94 L 04/11/17 22:54 97.2 F L 82 16 129/63 95 04/11/17 21:53 97.5 F L 77 16 136/60 04/11/17 18:51 97.5 F L 90 20 127/60 98 Intake and Output 04/11/17 04/12/17 04/12/17 22:59 06:59 14:59 Intake Total 800 Balance 800 Intake: Intake, IV Titration 800 Amount Sodium Chloride 0.9% 1, 800 000 ml @ 100 mls/hr IV . Q10H [facility] Rx#:[id number] Oral 0 Other: Voiding Method Toilet # Voids 1 Weight 91.172 kg Physical exam Gen. appearance oriented 3 in no distress Neck is supple no JVD Lungs good air entry clear to auscultation no rhonchi or wheezing Heart S1-S2 heard regular rate and rhythm no murmurs appreciated Abdomen is soft nontender no organomegaly bowel sounds are intact nonspecific tenderness on the left side no organomegaly Neurologically cranial nerves II-12 grossly intact no focal motor or sensory deficits noted Skin no abnormalities appreciated Results CBC & Chem 7: 04/11/17 20:50 04/11/17 20:50 Labs: Abnormal Lab Results - Last 24 Hours (Table) 04/11/17 04/11/17 04/11/17 Range/Units 20:37 20:50 20:50 Hct 46.2 H (34.0-46.0) % Glucose 103 H (74-99) mg/dL AST 271 H (14-36) U/L ALT 264 H (9-52) U/L Amylase 165 H (30-110) U/L Lipase 806 H (23-300) U/L Urine Appearance Cloudy H (Clear) Urine Protein 1+ H (Negative) Urine Mucus Few H (None) /hpf 04/12/17 Range/Units 06:21 Hct (34.0-46.0) % Glucose (74-99) mg/dL AST (14-36) U/L ALT (9-52) U/L Amylase (30-110) U/L Lipase 335 H (23-300) U/L Urine Appearance (Clear) Urine Protein (Negative) Urine Mucus (None) /hpf Microbiology - Last 24 Hours (Table) 04/11/17 20:37 Urine Culture - Preliminary Urine,Voided Thrombosis Risk Factor Assmnt - Choose All That Apply Each Factor Represents 1 point: Age 41-60 years, Obesity (BMI >25) Other Risk Factors: No Other congenital or acquired thrombophilia - If yes, enter type in comment: No Thrombosis Risk Factor Assessment Total Risk Factor Score: 2 Thrombosis Risk Factor Assessment Level: Low Risk Assessment and Plan Plan: Her 1 nonspecific abdominal pain #2 chronic diarrhea #3 ongoing tobacco use #4 suspect underlying depression #5 GERD Plan Continue supportive care Patient has vague symptoms will keep the patient clear liquid only Nicotine patch We'll start the patient on Bentyl C. diff will be ruled out
[2017-04-12] MEDS ORDERED: DICYCLOMINE 10 MG CAP PO PRN (13:35)
[2017-04-12 19:47] VITALS: RESP 16
[2017-04-12] MEDS: BECLOMETHASONE DIP 80 MCG/PUFF INHALER INHALATION SCH (20:40)
[2017-04-12] MEDS: FAMOTIDINE 20 MG TAB PO SCH (21:10)
[2017-04-13] MEDS: MORPHINE SULFATE 4 MG/ML SYRINGE IV PRN ×2 (02:32→10:39)
[2017-04-13] MEDS: ONDANSETRON 4 MG/2 ML VIAL IVP PRN ×2 (02:32→10:39)
[2017-04-13] MEDS: SODIUM CHLORIDE 0.9% 1,000 ML IV SCH ×2 (02:36→13:29)
[2017-04-13 07:30] LABS: Basophils % (A) 1 %; CH 31.9; CHCM 33.6; Eosinophils # (A) 0.3 k/uL (0-0.7); Eosinophils % (A) 4 %; HCT 37.9 % (34.0-46.0); HDW 2.49; HGB 12.5 gm/dL (11.4-16.0); Luc # (Auto) 0.13; Luc % (Auto) 2; Lymphocytes # (A) 2.2 k/uL (1.0-4.8); Lymphocytes % (A) 35 %; MCH 31.6 pg (25.0-35.0); MCHC 33.1 g/dL (31.0-37.0); MCV 95.5 fL (80.0-100.0); Mean Platelet Volume 7.5; Monocytes # (A) 0.3 k/uL (0-1.0); Monocytes % (A) 4 %; Neutrophils # (A) 3.5 k/uL (1.3-7.7); Neutrophils % (A) 54 %; RBC 3.97 m/uL (3.80-5.40); WBC 6.4 k/uL (3.8-10.6)
[2017-04-13 07:45] LABS: AST 585 U/L (14-36); Alkaline Phosphatase 109 U/L (38-126); Bilirubin, Delta 1.1 mg/dL (0.0-0.2); Blood Urea Nitrogen 8 mg/dL (7-17); Calcium 8.6 mg/dL (8.4-10.2); Chloride 111 mmol/L (98-107); Glucose 67 mg/dL (74-99); Non-African American GFR(MDRD) >60 (>60 ml/min/1.73 sqM); Potassium 4.4 mmol/L (3.5-5.1); Sodium 141 mmol/L (137-145); Total Bilirubin 1.8 mg/dL (0.2-1.3)
[2017-04-13 07:52] VITALS: BP 124/79; PULSE 77; TEMP 98.2
[2017-04-13 07:56] LABS: ALT 652 U/L (9-52); Anion Gap 7 mmol/L; Carbon Dioxide 23 mmol/L (22-30)
[2017-04-13 08:16] LABS: Hepatitis B Surface Ag Index 0.05
[2017-04-13 08:21] LABS: Hepatitis B Core IgM Index 0.02
[2017-04-13 08:33] LABS: Hepatitis C Virus IgG Ab Negative (Negative); Hepatitis C Virus IgG Index 0.04
[2017-04-13] MEDS: BECLOMETHASONE DIP 80 MCG/PUFF INHALER INHALATION SCH (08:55)
[2017-04-13] MEDS: NICOTINE 21MG/24HR PATCH TRANSDERM SCH (09:22)
[2017-04-13] MEDS: FAMOTIDINE 20 MG TAB PO SCH (09:22)
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
== END 2017-04-13 14:50 | disposition home or self-care (01) ==
LOC: EC 18:36 → 3SUR 22:36
PROVIDERS: ADMIT Internal Medicine; ATTEND Internal Medicine
DX: R10.9 Unspecified abdominal pain (principal); K52.9 Noninfective gastroenteritis and colitis, unspecified; F17.200 Nicotine dependence, unspecified, uncomplicated; K21.9 Gastro-esophageal reflux disease without esophagitis; K86.3 Pseudocyst of pancreas; R74.8 Abnormal levels of other serum enzymes; Z90.49 Acquired absence of other specified parts of digestive tract; Z79.899 Other long term (current) drug therapy; Z88.6 Allergy status to analgesic agent; Z91.030 Bee allergy status; Z88.5 Allergy status to narcotic agent; Z88.0 Allergy status to penicillin; Z88.8 Allergy status to other drugs, medicaments and biological substances; Z91.018 Allergy to other foods; J45.909 Unspecified asthma, uncomplicated; J44.9 Chronic obstructive pulmonary disease, unspecified; G47.30 Sleep apnea, unspecified; Z86.14 Personal history of Methicillin resistant Staphylococcus aureus infection
CPT/HCPCS: 96361 ×4; 96375 ×2; 96376 ×3; 96374; 99284 ×2; 36415; 94640; 80053 ×2; 80074; 84443; 82150 ×2; 82248; 82746; 83690 ×2; 83735; 85025 ×2; 81003; 81001; 81025; 87086; 74000; 74176; G0378 ×3; S4990 ×2; J2270 ×3; J2405 ×3

== ENCOUNTER → 2017-05-25 | Outpatient (CLI) | payer MEDICARE, OTHER ==
[2017-05-25 17:23] LABS: CH 32.2; CHCM 34.3; HCT 46.3 % (34.0-46.0); HDW 2.46; MCH 31.7 pg (25.0-35.0); MCHC 33.5 g/dL (31.0-37.0); MCV 94.5 fL (80.0-100.0); Mean Platelet Volume 7.3; RDW 14.7 % (11.5-15.5); WBC 10.1 k/uL (3.8-10.6)
[2017-05-25 17:27] LABS: HGB 15.5 gm/dL (11.4-16.0)
[2017-05-25 18:02] LABS: ALT 44 U/L (9-52); AST 22 U/L (14-36); Alkaline Phosphatase 91 U/L (38-126); Amylase 84 U/L (30-110); Anion Gap 10 mmol/L; Blood Urea Nitrogen 14 mg/dL (7-17); Calcium 10.1 mg/dL (8.4-10.2); Carbon Dioxide 23 mmol/L (22-30); Chloride 106 mmol/L (98-107); Glucose 86 mg/dL (74-99); Non-African American GFR(MDRD) >60 (>60 ml/min/1.73 sqM); Potassium 4.7 mmol/L (3.5-5.1); Sodium 139 mmol/L (137-145); Total Bilirubin 0.4 mg/dL (0.2-1.3); Total Protein 7.7 g/dL (6.3-8.2)
== END | disposition home or self-care (01) ==
LOC: LABWHC1 17:06
DX: R79.89 Other specified abnormal findings of blood chemistry (principal); R10.9 Unspecified abdominal pain
CPT/HCPCS: 36415; 80053; 82150; 83690; 85027

== ENCOUNTER → 2017-06-08 | Outpatient (CLI) | payer MEDICARE, OTHER ==
--- NOTE | 2017-06-08 14:18 | MR ---
EXAMINATION TYPE: MR abdomen wo/w con DATE OF EXAM: 06/08/2017 COMPARISON: CT abdomen and pelvis April 11, 2017. HISTORY: Unspecified abdominal pain per order. Left-sided pain per patient. CONTRAST: Standard multiplanar, multisequence MRI departmental protocol utilizing 10 mL intravenous Gadavist ga dolinium contrast. FINDINGS: Lung bases are grossly clear, there is no pleural or pericardial effusion seen. Liver shows diffuse signal dropout on in the out of phase sequence imaging consistent with diffuse fa tty infiltration. Artifact from cholecystectomy clips are seen centrally on image 63. No suspicious b iliary dilatation is present. No suspicious solid or cystic liver lesions are seen. The spleen and right adrenal gland are normal in size. There is redemonstration of 1.7 x 1.5 cm left adrenal mass that shows signal drop dropout consistent with lipid rich adenoma. Pancreas is normal in size. In the posterior aspect of the distal body junction with tail there are f elt to tiny 2 to 3 mm adjacent cystic lesions seen best image 28 series 501, nonspecific. No pancreat ic ductal dilatation is seen. No surrounding fluid is noted. Left kidney is asymmetrically larger versus right kidney. There are separate upper and lower pole mod alities with fusion pelvis level noted. There is no suspicious small or large bowel dilatation. There is no concerning abdominal fluid collec tion. There is no greater than 1 cm abdominal adenopathy. Osseous structures are intact. Subcentimete r nodule possible lymph node right lower thorax on axial image 36 series 501 is stable presumed benig n. IMPRESSION: 1. No significant finding is seen to account for patient's symptoms of left-sided pain. 2. A 1.7 cm left adrenal mass has MRI imaging characteristics consistent with benign lipid rich adeno ma. 3. 2 adjacent tiny cystic lesions distal pancreatic body/tail posteriorly are nonspecific presumed be nign but would consider MRI follow-up in one year time to ensure stability.
== END | disposition home or self-care (01) ==
LOC: RADMRIMAIN 12:59
DX: E27.8 Other specified disorders of adrenal gland (principal); R10.9 Unspecified abdominal pain
CPT/HCPCS: 74183; A9581

== ENCOUNTER → 2017-06-09 | Outpatient (CLI) | payer MEDICARE, OTHER ==
--- NOTE | 2017-06-09 14:29 | MR ---
EXAMINATION TYPE: MR pelvis wo/w con DATE OF EXAM: 06/09/2017 COMPARISON: CT abdomen pelvis 04/11/2017. HISTORY: unspecified abd pain, left side pain, ct of abdomen in pacs CONTRAST: Standard multiplanar, multisequence MRI departmental protocol utilizing 10 mL intravenous Gadavist ga dolinium contrast. FINDINGS: There is been prior hysterectomy. Vaginal cuff is free of mass lesion. The ovaries are not visualized . No evidence for adnexal mass. No evidence for free fluid. Urinary bladder has a normal wall thickness and appearance. No evidence for adenopathy. Visualized gastrointestinal tract is of normal caliber. No inflammatory changes seen. Visualized osseous structures demonstrate normal marrow signal without lesion or bony destructive pro cess. IMPRESSION: No significant abnormality to account for the patient's symptoms.
== END | disposition home or self-care (01) ==
LOC: RADMRIMAIN 13:10
DX: R10.9 Unspecified abdominal pain (principal)
CPT/HCPCS: 72197; A9581

== ENCOUNTER 2017-07-05 15:14 | Emergency (ER) | payer MEDICARE, OTHER ==
[2017-07-05 16:14] VITALS: TEMP 98.9
--- NOTE | 2017-07-05 18:14 | ED ---
General Adult HPI - General Chief complaint: Abdominal Pain Stated complaint: Flank Pain Time Seen by Provider: 07/05/17 17:58 Source: patient, RN notes reviewed Mode of arrival: ambulatory Limitations: no limitations - History of Present Illness Initial comments: 46 yo female presents to the ER with cc of left-sided flank pain and lower abdominal pain. Patient has had these symptoms for the past month or so. She' s been to her doctor as well as a GI specialist. Patient unable to find a cause. Patient states that she is now having blood with urination. Patient states it's more painful left side. She was sent has become bloated with this. Patient was concerned due to her continued pain and discomfort so she thought that she should be evaluated. Patient states that she does have some nausea vomiting with this sometimes. Patient states she does not wait any longer to see the specialist so she needs to be taking care of today. Patient denies any recent fever, chills, shortness of breath, chest pain, back pain, numbness or tingling, dysuria or hematuria, constipation or diarrhea, headaches or visual changes, or any other current symptoms. - Related Data Home Medications Medication Instructions Recorded Confirmed Ranitidine HCl [Zantac] 150 mg PO BID 05/29/14 07/05/17 Beclomethasone Dipropionate [Qvar 2 puff INHALATION RT-BID 05/11/16 07/05/17 80 mcg/puff] Loratadine [Claritin] 10 mg PO HS 03/04/17 07/05/17 Amitriptyline HCl [Elavil] 25 mg PO HS 07/05/17 07/05/17 LORazepam [Ativan] 0.25 - 0.5 mg PO HS 07/05/17 07/05/17 Allergies Allergy/AdvReac Type Severity Reaction Status Date / Time venom-honey bee Allergy Severe Anaphylaxis Verified 07/05/17 16:15 [bee venom (honey bee)] amoxicillin [Amoxicillin] Allergy Anaphylaxis Verified 07/05/17 16:15 aspirin Allergy Anaphylaxis Verified 07/05/17 16:15 chocolate flavor Allergy Swelling Verified 07/05/17 16:15 hydrocodone [From [place]] Allergy Rash/Hives Verified 07/05/17 16:15 NSAIDS (Non-Steroidal Allergy Swelling Verified 07/05/17 16:15 Anti-Inflamma Penicillins Allergy Anaphylaxis Verified 07/05/17 16:15 prednisone Allergy Anaphylaxis Verified 07/05/17 16:15 propoxyphene napsylate Allergy Rash/Hives Verified 07/05/17 16:15 [From Darvocet-N] strawberry [[place]] Allergy Swelling Verified 07/05/17 16:15 tomato [Tomato] Allergy Swelling Verified 07/05/17 16:15 zonisamide [From Zonegran] Allergy Swelling Verified 07/05/17 16:15 famotidine [From Pepcid] AdvReac Vomiting Verified 07/05/17 16:15 Review of Systems ROS Statement: Those systems with pertinent positive or pertinent negative responses have been documented in the HPI. ROS Other: All systems not noted in ROS Statement are negative. Past Medical History Past Medical History: Asthma, COPD, GERD/Reflux, Sleep Apnea/CPAP/BIPAP, Thyroid Disorder Additional Past Medical History / Comment(s): USES NO CPAP. CHonic back pain ( buldging discs). Hiatal hernia. MIGRAINES. History of Any Multi-Drug Resistant Organisms: MRSA Date of last positivie culture/infection: 08/13/2007 MDRO Source:: LEFT KNEE Past Surgical History: Hysterectomy Additional Past Surgical History / Comment(s): Total of 13 surgeries on her L knee including lt knee replacement x 3, lt leg contains rods, L benign breast mass removed, EGD with BX, right foot tendon release, stacey oopherectomies Past Anesthesia/Blood Transfusion Reactions: No Reported Reaction Additional Past Anesthesia/Blood Transfusion Reaction / Comment(s): Pt received blood with one of her L knee surgeries without reaction X 2. Past Psychological History: No Psychological Hx Reported Smoking Status: Current every day smoker Past Alcohol Use History: None Reported Past Drug Use History: None Reported - Past Family History Mother Family Medical History: Deep Vein Thrombosis (DVT) Additional Family Medical History / Comment(s): Mother of a blood clot that went to her heart. Father Family Medical History: No Reported History Additional Family Medical History / Comment(s): Father of "natural causes" at the age of 85 yrs. General Exam - General Exam Comments Initial Comments: General: The patient is awake and alert, in no distress, and does not appear acutely ill. Eye: Pupils are equal, round and reactive to light, extra-ocular movements are intact; there is normal conjunctiva bilaterally. No signs of icterus. Ears, nose, mouth and throat: There are moist mucous membranes. Neck: The neck is supple, there is no tenderness. Cardiovascular: There is a regular rate and rhythm. No murmur, rub or gallop is appreciated. Respiratory: Lungs are clear to auscultation, respirations are non-labored, breath sounds are equal. No wheezes, stridor, rales, or rhonchi. Gastrointestinal: Soft, non-distended, mild tenderness in left lower quadrant of the abdomen without masses or organomegaly noted. There is no rebound or guarding present. No CVA tenderness. Bowel sounds are unremarkable. Back: There is no tenderness to palpation in the midline. There is no obvious deformity. No rashes noted. Musculoskeletal: Normal ROM, no tenderness, There is no pedal edema. There is no calf tenderness or swelling. Sensation intact. Pulses equal bilaterally 2+. Neurological: CN II-XII intact, There are no obvious motor or sensory deficits. Coordination appears grossly intact. Speech is normal. Skin: Skin is warm and dry and no rashes or lesions are noted. Psychiatric: Cooperative, appropriate mood & affect, normal judgment. Limitations: no limitations Course Vital Signs 07/05/17 07/05/17 16:10 19:17 Temperature 98.9 F Pulse Rate 99 99 Respiratory 18 18 Rate Blood Pressure 170/95 143/77 O2 Sat by Pulse 98 99 Oximetry Medical Decision Making - Medical Decision Making 46-year-old female presents to the emergency department with a chief complaint of left lower quadrant abdominal pain. This and patient's CAT scan is reviewed and negative. Discussed follow-up with the doctor did give information. Discussed return parameters all the questions. She stated she understood and she is given plan. She'll be discharged home. - Lab Data Result diagrams: 07/05/17 18:10 07/05/17 18:10 Lab Results 07/05/17 07/05/17 07/05/17 Range/Units 18:10 18:10 18:10 WBC 10.6 (3.8-10.6) k/uL RBC 4.85 (3.80-5.40) m/uL Hgb 15.0 (11.4-16.0) gm/dL Hct 45.4 (34.0-46.0) % MCV 93.7 (80.0-100.0) fL MCH 30.9 (25.0-35.0) pg MCHC 33.0 (31.0-37.0) g/dL RDW 13.4 (11.5-15.5) % Plt Count 270 (150-450) k/uL Neutrophils % 51 % Lymphocytes % 39 % Monocytes % 4 % Eosinophils % 3 % Basophils % 1 % Neutrophils # 5.5 (1.3-7.7) k/uL Lymphocytes # 4.1 (1.0-4.8) k/uL Monocytes # 0.4 (0-1.0) k/uL Eosinophils # 0.4 (0-0.7) k/uL Basophils # 0.1 (0-0.2) k/uL Sodium 141 (137-145) mmol/L Potassium 4.9 (3.5-5.1) mmol/L Chloride 108 H (98-107) mmol/L Carbon Dioxide 22 (22-30) mmol/L Anion Gap 11 mmol/L BUN 10 (7-17) mg/dL Creatinine 0.74 (0.52-1.04) mg/dL Est GFR (MDRD) Af Amer >60 (>60 ml/min/1.73 sqM) Est GFR (MDRD) Non-Af >60 (>60 ml/min/1.73 sqM) Glucose 87 (74-99) mg/dL Calcium 10.0 (8.4-10.2) mg/dL Total Bilirubin 0.5 (0.2-1.3) mg/dL AST 43 H (14-36) U/L ALT 50 (9-52) U/L Alkaline Phosphatase 88 (38-126) U/L Total Protein 8.2 (6.3-8.2) g/dL Albumin 4.7 (3.5-5.0) g/dL Amylase 145 H (30-110) U/L Lipase 497 H (23-300) U/L Urine Color Yellow Urine Appearance Clear (Clear) Urine pH 7.0 (5.0-8.0) Ur Specific [place] 1.010 (1.001-1.035) Urine Protein Negative (Negative) Urine Glucose (UA) Negative (Negative) Urine Ketones Negative (Negative) Urine Blood Small H (Negative) Urine Nitrite Negative (Negative) Urine Bilirubin Negative (Negative) Urine Urobilinogen <2.0 (<2.0) mg/dL Ur Leukocyte Esterase Negative (Negative) Urine RBC 2 (0-5) /hpf Urine WBC 1 (0-5) /hpf Ur Squamous Epith Cells 1 (0-4) /hpf Amorphous Sediment Rare H (None) /hpf Urine Mucus Rare H (None) /hpf - Radiology Data Radiology results: report reviewed, image reviewed Disposition Clinical Impression: Left flank pain Disposition: HOME SELF-CARE Condition: Stable Instructions: Abdominal Pain (ED) Additional Instructions: Please use medication as discussed. Please follow up with family doctor if symptoms have not improved over the next two days. Please return to the emergency room if your symptoms increase or worsen or for any other concerns. Referrals: Paula Hudson MD [Primary Care Provider] - 1-2 days Malka Rodrigues MD [STAFF PHYSICIAN] - 1-2 days Time of Disposition: 19:59
[2017-07-05 18:24] LABS: Amorphous Sediment,Urine Rare /hpf; Appearance,Urine Clear (Clear); Bilirubin,Urine Negative (Negative); Glucose,Urine (UA) Negative (Negative); Ketones,Urine Negative (Negative); Leukocyte Esterase,Urine Negative (Negative); Mucus,Urine Rare /hpf; Nitrite,Urine Negative (Negative); Particle Count 956; Protein,Urine Negative (Negative); RBC,Urine 2 /hpf (0-5); Squamous Epithelial Cell,Urine 1 /hpf (0-4); UA Billing (MACRO vs. MICRO) MICRO; Urobilinogen,Urine <2.0 mg/dL (<2.0); WBC,Urine 1 /hpf (0-5)
[2017-07-05 18:46] LABS: Basophils # (A) 0.1 k/uL (0-0.2); Basophils % (A) 1 %; CH 31.3; CHCM 33.5; Eosinophils # (A) 0.4 k/uL (0-0.7); Eosinophils % (A) 3 %; HCT 45.4 % (34.0-46.0); HDW 2.44; Luc # (Auto) 0.19; Luc % (Auto) 2; Lymphocytes # (A) 4.1 k/uL (1.0-4.8); Lymphocytes % (A) 39 %; MCH 30.9 pg (25.0-35.0); MCV 93.7 fL (80.0-100.0); Mean Platelet Volume 6.9; Monocytes # (A) 0.4 k/uL (0-1.0); Monocytes % (A) 4 %; Neutrophils # (A) 5.5 k/uL (1.3-7.7); Neutrophils % (A) 51 %; RBC 4.85 m/uL (3.80-5.40); RDW 13.4 % (11.5-15.5); WBC 10.6 k/uL (3.8-10.6); WBC (Perox) 9.96
[2017-07-05 18:55] LABS: ALT 50 U/L (9-52); AST 43 U/L (14-36); Alkaline Phosphatase 88 U/L (38-126); Amylase 145 U/L (30-110); Anion Gap 11 mmol/L; Blood Urea Nitrogen 10 mg/dL (7-17); Carbon Dioxide 22 mmol/L (22-30); Chloride 108 mmol/L (98-107); Glucose 87 mg/dL (74-99); Non-African American GFR(MDRD) >60 (>60 ml/min/1.73 sqM); Potassium 4.9 mmol/L (3.5-5.1); Sodium 141 mmol/L (137-145); Total Bilirubin 0.5 mg/dL (0.2-1.3); Total Protein 8.2 g/dL (6.3-8.2)
--- NOTE | 2017-07-05 19:53 | CT ---
EXAMINATION TYPE: CT abdomen pelvis wo con DATE OF EXAM: 07/05/2017 COMPARISON: 04/11/2017 HISTORY: left flank pain CT DLP: 715.4 mGycm Automated exposure control for dose reduction was used. TECHNIQUE: Helical acquisition of images was performed from the lung bases through the pelvis. FINDINGS: Lung bases are clear. There is no pleural effusion. Liver spleen pancreas appear normal. Bile ducts are not dilated. There are clips from cholecystectomy . There is low-density 2 cm mass on the left adrenal gland. Kidneys show no hydronephrosis. Ureters are not dilated. There is no retroperitoneal adenopathy. Ther e is no ascites. Bladder distends smoothly. There is no sign of a pelvic mass. I see no intestinal wa ll thickening. There are no dilated loops. I see no bony destructive process. Appendix is not seen. T here is no sign of appendicitis. IMPRESSION: LOW-DENSITY LEFT ADRENAL MASS CONSISTENT WITH BENIGN ETIOLOGY. NO SIGN OF ACUTE ABDOMEN AND PELVIS. NO CHANGE COMPARED TO OLD EXAM. I DO NOT SEE A CAUSE FOR LEFT FL ANK PAIN.
--- NOTE | 2017-07-05 20:15 | ED ---
Medical Decision Making - Medical Decision Making We did discuss elevated pink at a conference. We discussed keeping a clear liquid diet and returning for any worsening symptoms. She stated she understood. - Lab Data Result diagrams: 07/05/17 18:10 07/05/17 18:10 Lab Results 07/05/17 07/05/17 07/05/17 Range/Units 18:10 18:10 18:10 WBC 10.6 (3.8-10.6) k/uL RBC 4.85 (3.80-5.40) m/uL Hgb 15.0 (11.4-16.0) gm/dL Hct 45.4 (34.0-46.0) % MCV 93.7 (80.0-100.0) fL MCH 30.9 (25.0-35.0) pg MCHC 33.0 (31.0-37.0) g/dL RDW 13.4 (11.5-15.5) % Plt Count 270 (150-450) k/uL Neutrophils % 51 % Lymphocytes % 39 % Monocytes % 4 % Eosinophils % 3 % Basophils % 1 % Neutrophils # 5.5 (1.3-7.7) k/uL Lymphocytes # 4.1 (1.0-4.8) k/uL Monocytes # 0.4 (0-1.0) k/uL Eosinophils # 0.4 (0-0.7) k/uL Basophils # 0.1 (0-0.2) k/uL Sodium 141 (137-145) mmol/L Potassium 4.9 (3.5-5.1) mmol/L Chloride 108 H (98-107) mmol/L Carbon Dioxide 22 (22-30) mmol/L Anion Gap 11 mmol/L BUN 10 (7-17) mg/dL Creatinine 0.74 (0.52-1.04) mg/dL Est GFR (MDRD) Af Amer >60 (>60 ml/min/1.73 sqM) Est GFR (MDRD) Non-Af >60 (>60 ml/min/1.73 sqM) Glucose 87 (74-99) mg/dL Calcium 10.0 (8.4-10.2) mg/dL Total Bilirubin 0.5 (0.2-1.3) mg/dL AST 43 H (14-36) U/L ALT 50 (9-52) U/L Alkaline Phosphatase 88 (38-126) U/L Total Protein 8.2 (6.3-8.2) g/dL Albumin 4.7 (3.5-5.0) g/dL Amylase 145 H (30-110) U/L Lipase 497 H (23-300) U/L Urine Color Yellow Urine Appearance Clear (Clear) Urine pH 7.0 (5.0-8.0) Ur Specific [place] 1.010 (1.001-1.035) Urine Protein Negative (Negative) Urine Glucose (UA) Negative (Negative) Urine Ketones Negative (Negative) Urine Blood Small H (Negative) Urine Nitrite Negative (Negative) Urine Bilirubin Negative (Negative) Urine Urobilinogen <2.0 (<2.0) mg/dL Ur Leukocyte Esterase Negative (Negative) Urine RBC 2 (0-5) /hpf Urine WBC 1 (0-5) /hpf Ur Squamous Epith Cells 1 (0-4) /hpf Amorphous Sediment Rare H (None) /hpf Urine Mucus Rare H (None) /hpf Disposition Clinical Impression: Left flank pain, Pancreatitis Disposition: HOME SELF-CARE Condition: Stable Instructions: Abdominal Pain (ED) Additional Instructions: Please use medication as discussed. Please follow up with family doctor if symptoms have not improved over the next two days. Please return to the emergency room if your symptoms increase or worsen or for any other concerns. Referrals: Malka Rodrigues MD [STAFF PHYSICIAN] - 1-2 days Paula Hudson MD [Primary Care Provider] - 1-2 days
[2017-07-05 20:46] VITALS: BP 132/79; PULSE 84; RESP 16
== END 2017-07-05 20:46 | disposition home or self-care (01) ==
LOC: EC 15:14
DX: K85.90 Acute pancreatitis without necrosis or infection, unspecified (principal); J44.9 Chronic obstructive pulmonary disease, unspecified; K21.9 Gastro-esophageal reflux disease without esophagitis; F17.200 Nicotine dependence, unspecified, uncomplicated; Z86.14 Personal history of Methicillin resistant Staphylococcus aureus infection; Z79.51 Long term (current) use of inhaled steroids; Z79.899 Other long term (current) drug therapy; Z88.0 Allergy status to penicillin; Z88.5 Allergy status to narcotic agent; Z88.6 Allergy status to analgesic agent; Z88.8 Allergy status to other drugs, medicaments and biological substances; Z91.018 Allergy to other foods; Z91.030 Bee allergy status
CPT/HCPCS: 36415; 74176; 80053; 81001; 82150; 83690; 85025; 99284

== ENCOUNTER 2017-11-02 16:39 | Emergency (ER) | payer MEDICARE, OTHER ==
[2017-11-02 16:45] VITALS: RESP 18; TEMP 98.2
[2017-11-02 16:58] LABS: Glucose,Whole Blood 148 mg/dL (75-99)
[2017-11-02 17:13] LABS: Basophils # (A) 0.1 k/uL (0-0.2); Basophils % (A) 1 %; Eosinophils # (A) 0.4 k/uL (0-0.7); Eosinophils % (A) 4 %; HCT 42.6 % (34.0-46.0); HGB 14.7 gm/dL (11.4-16.0); Lymphocytes # (A) 3.8 k/uL (1.0-4.8); Lymphocytes % (A) 39 %; MCHC 34.6 g/dL (31.0-37.0); MCV 89.4 fL (80.0-100.0); Mean Platelet Volume 6.9; Monocytes # (A) 0.3 k/uL (0-1.0); Monocytes % (A) 3 %; Neutrophils % (A) 51 %; Platelet Count 265 k/uL (150-450); RBC 4.77 m/uL (3.80-5.40); RDW 13.2 % (11.5-15.5); WBC 9.8 k/uL (3.8-10.6)
[2017-11-02] MEDS ORDERED: RX INFO: IV CONTRAST WAS GIVEN 1 EACH MISC MISCELLANE PRN (17:14)
--- NOTE | 2017-11-02 17:14 | ED ---
General Adult HPI - General Chief complaint: Neuro Symptoms/Deficit Stated complaint: Left Sided Numbness Time Seen by Provider: 11/02/17 17:10 Source: patient, RN notes reviewed Mode of arrival: ambulatory Limitations: no limitations - History of Present Illness Initial comments: This is a 46-year-old female presents emergency department stating that about 45 minutes prior to arrival the whole left side of her body went numb. Patient claims that she cannot even feel anyone touching her on her face on the left the neck on the left arm and leg on the left. Patient denies any headache patient states that she has some weakness with the left leg and arm as well. Patient denies blurred vision or slurred speech. Patient denies any chest pain palpitations difficulty breathing or shortness of breath. Patient denies any recent fever chills or cough. - Related Data Home Medications Medication Instructions Recorded Confirmed Ranitidine HCl [Zantac] 150 mg PO BID 05/29/14 11/02/17 Beclomethasone Dipropionate [Qvar 2 puff INHALATION RT-BID 05/11/16 11/02/17 80 mcg/puff] Albuterol Sulfate [Proair Hfa] 1 - 2 puff INHALATION RT-Q6H PRN 11/02/17 Dicyclomine [Bentyl] 20 mg PO QID 11/02/17 11/02/17 Nitroglycerin Sl Tabs [Nitrostat] 0.4 mg SUBLINGUAL Q5M PRN 11/02/17 11/02/17 Allergies Allergy/AdvReac Type Severity Reaction Status Date / Time venom-honey bee Allergy Severe Anaphylaxis Verified 11/02/17 18:32 [bee venom (honey bee)] amoxicillin [Amoxicillin] Allergy Anaphylaxis Verified 11/02/17 18:32 aspirin Allergy Anaphylaxis Verified 11/02/17 18:32 chocolate flavor Allergy Swelling Verified 11/02/17 18:32 hydrocodone [From Cubero] Allergy Rash/Hives Verified 11/02/17 18:32 NSAIDS (Non-Steroidal Allergy Swelling Verified 11/02/17 18:32 Anti-Inflamma Penicillins Allergy Anaphylaxis Verified 11/02/17 18:32 prednisone Allergy Anaphylaxis Verified 11/02/17 18:32 propoxyphene napsylate Allergy Rash/Hives Verified 11/02/17 18:32 [From Darvocet-N] strawberry [Hurley] Allergy Swelling Verified 11/02/17 18:32 tomato [Tomato] Allergy Swelling Verified 11/02/17 18:32 zonisamide [From Zonegran] Allergy Swelling Verified 11/02/17 18:32 famotidine [From Pepcid] AdvReac Vomiting Verified 11/02/17 18:32 Review of Systems ROS Statement: Those systems with pertinent positive or pertinent negative responses have been documented in the HPI. ROS Other: All systems not noted in ROS Statement are negative. Past Medical History Past Medical History: Asthma, COPD, GERD/Reflux, Sleep Apnea/CPAP/BIPAP, Thyroid Disorder Additional Past Medical History / Comment(s): USES NO CPAP. CHonic back pain ( buldging discs). Hiatal hernia. MIGRAINES. History of Any Multi-Drug Resistant Organisms: MRSA Date of last positivie culture/infection: 08/13/2007 MDRO Source:: LEFT KNEE Past Surgical History: Hysterectomy Additional Past Surgical History / Comment(s): Total of 13 surgeries on her L knee including lt knee replacement x 3, lt leg contains rods, L benign breast mass removed, EGD with BX, right foot tendon release, stacey oopherectomies Past Anesthesia/Blood Transfusion Reactions: No Reported Reaction Additional Past Anesthesia/Blood Transfusion Reaction / Comment(s): Pt received blood with one of her L knee surgeries without reaction X 2. Past Psychological History: No Psychological Hx Reported Smoking Status: Current every day smoker Past Alcohol Use History: None Reported Past Drug Use History: None Reported - Past Family History Mother Family Medical History: Deep Vein Thrombosis (DVT) Additional Family Medical History / Comment(s): Mother of a blood clot that went to her heart. Father Family Medical History: No Reported History Additional Family Medical History / Comment(s): Father of "natural causes" at the age of 85 yrs. General Exam - General Exam Comments Initial Comments: GENERAL: Patient is well-developed and well-nourished. Patient is nontoxic and well- hydrated and is in no acute distress. ENT: Neck is soft and supple. No significant lymphadenopathy is noted. Oropharynx is clear. Moist mucous membranes. Neck has full range of motion without eliciting any pain. EYES: The sclera were anicteric and conjunctiva were pink and moist. Extraocular movements were intact and pupils were equal round and reactive to light. Eyelids were unremarkable. PULMONARY: Unlabored respirations. Good breath sounds bilaterally. No audible rales rhonchi or wheezing was noted. CARDIOVASCULAR: There is a regular rate and rhythm without any murmurs gallops or rubs. Femoral pulses are equal bilaterally ABDOMEN: Soft and nontender with normal bowel sounds. No palpable organomegaly was noted. There is no palpable pulsatile mass. SKIN: Skin is clear with no lesions or rashes and otherwise unremarkable. NEUROLOGIC: Patient is alert and oriented x3. Cranial nerves II through XII are grossly intact. She states she has decreased sensation in the left leg arm neck and face. Patient has decreased house coordinator and plantar and dorsiflexion on the left. Patient's symptoms do seem to vary when you distract her. MUSCULOSKELETAL: Normal extremities with adequate strength and full range of motion. No lower extremity swelling or edema. No calf tenderness. LYMPHATICS: No significant lymphadenopathy is noted PSYCHIATRIC: Normal psychiatric evaluation. Limitations: no limitations Course Vital Signs 11/02/17 11/02/17 11/02/17 16:43 17:11 17:26 Temperature 98.2 F Pulse Rate 106 H 96 104 H Respiratory 18 18 18 Rate Blood Pressure 126/74 142/89 137/76 O2 Sat by Pulse 98 96 98 Oximetry 11/02/17 11/02/17 11/02/17 17:41 17:56 18:10 Temperature Pulse Rate 92 88 88 Respiratory 18 18 18 Rate Blood Pressure 125/67 136/75 133/58 O2 Sat by Pulse 98 98 98 Oximetry Medical Decision Making - Medical Decision Making EKG shows a normal sinus rhythm at 97 bpm WI interval is 136 dresses 80 QT interval is 370 QTC is 480. Patient's EKG shows no ST segment elevation or depression or T wave abnormalities are noted. As soon as I saw the patient I called a code stroke overhead. CT of the brain shows no acute abnormality. CTA shows no acute normalities. Dr. Jorge saw the CT and CTA indeterminate the patient shouldn't receive TPA. He spoke with the patient and ordered the TPA. He also set up admission over at [facility] and that is where the patient will be transferred. Patient did get TPA Initial delay of seeing the patient for about 25 minutes was because I was not notified when the patient arrived to the room for 25 minutes and this is why the TPA was outside to 60 minute window - Lab Data Result diagrams: 11/02/17 17:00 11/02/17 17:00 Lab Results 11/02/17 11/02/17 11/02/17 Range/Units 16:55 17:00 17:00 WBC 9.8 (3.8-10.6) k/uL RBC 4.77 (3.80-5.40) m/uL Hgb 14.7 (11.4-16.0) gm/dL Hct 42.6 (34.0-46.0) % MCV 89.4 (80.0-100.0) fL MCH 31.0 (25.0-35.0) pg MCHC 34.6 (31.0-37.0) g/dL RDW 13.2 (11.5-15.5) % Plt Count 265 (150-450) k/uL Neutrophils % 51 % Lymphocytes % 39 % Monocytes % 3 % Eosinophils % 4 % Basophils % 1 % Neutrophils # 5.0 (1.3-7.7) k/uL Lymphocytes # 3.8 (1.0-4.8) k/uL Monocytes # 0.3 (0-1.0) k/uL Eosinophils # 0.4 (0-0.7) k/uL Basophils # 0.1 (0-0.2) k/uL PT (9.0-12.0) sec INR (<1.2) APTT (22.0-30.0) sec Sodium 142 (137-145) mmol/L Potassium 4.0 (3.5-5.1) mmol/L Chloride 105 (98-107) mmol/L Carbon Dioxide 25 (22-30) mmol/L Anion Gap 12 mmol/L BUN 13 (7-17) mg/dL Creatinine 0.82 (0.52-1.04) mg/dL Est GFR (MDRD) Af Amer >60 (>60 ml/min/1.73 sqM) Est GFR (MDRD) Non-Af >60 (>60 ml/min/1.73 sqM) Glucose 160 H (74-99) mg/dL POC Glucose (mg/dL) 148 H (75-99) mg/dL POC Glu Language Interpreter ID Ngozi Hassan Calcium 9.8 (8.4-10.2) mg/dL Total Bilirubin 0.3 (0.2-1.3) mg/dL AST 29 (14-36) U/L ALT 34 (9-52) U/L Alkaline Phosphatase 78 (38-126) U/L Total Creatine Kinase (30-135) U/L CK-MB (CK-2) (0.0-2.4) ng/mL CK-MB (CK-2) Rel Index Troponin I (0.000-0.034) ng/mL Total Protein 7.3 (6.3-8.2) g/dL Albumin 4.2 (3.5-5.0) g/dL 11/02/17 11/02/17 Range/Units 17:00 17:00 WBC (3.8-10.6) k/uL RBC (3.80-5.40) m/uL Hgb (11.4-16.0) gm/dL Hct (34.0-46.0) % MCV (80.0-100.0) fL MCH (25.0-35.0) pg MCHC (31.0-37.0) g/dL RDW (11.5-15.5) % Plt Count (150-450) k/uL Neutrophils % % Lymphocytes % % Monocytes % % Eosinophils % % Basophils % % Neutrophils # (1.3-7.7) k/uL Lymphocytes # (1.0-4.8) k/uL Monocytes # (0-1.0) k/uL Eosinophils # (0-0.7) k/uL Basophils # (0-0.2) k/uL PT 10.0 (9.0-12.0) sec INR 1.0 (<1.2) APTT 25.0 (22.0-30.0) sec Sodium (137-145) mmol/L Potassium (3.5-5.1) mmol/L Chloride (98-107) mmol/L Carbon Dioxide (22-30) mmol/L Anion Gap mmol/L BUN (7-17) mg/dL Creatinine (0.52-1.04) mg/dL Est GFR (MDRD) Af Amer (>60 ml/min/1.73 sqM) Est GFR (MDRD) Non-Af (>60 ml/min/1.73 sqM) Glucose (74-99) mg/dL POC Glucose (mg/dL) (75-99) mg/dL POC Glu Language Interpreter ID Calcium (8.4-10.2) mg/dL Total Bilirubin (0.2-1.3) mg/dL AST (14-36) U/L ALT (9-52) U/L Alkaline Phosphatase (38-126) U/L Total Creatine Kinase 50 (30-135) U/L CK-MB (CK-2) 0.3 (0.0-2.4) ng/mL CK-MB (CK-2) Rel Index 0.6 Troponin I <0.012 (0.000-0.034) ng/mL Total Protein (6.3-8.2) g/dL Albumin (3.5-5.0) g/dL Critical Care Time Critical Care Time: Yes Total Critical Care Time: 35 Disposition Clinical Impression: Cerebrovascular accident, Received intravenous tissue plasminogen activator ( tPA) in emergency department Disposition: OTHER INSTITUTION NOT DEFINED Referrals: Paula Hudson MD [Primary Care Provider] - 1-2 days Time of Disposition: 18:30 - Out of Hospital Transfer - Req. Specs Out of Hospital Transfer - Requested Specifics: Medical ICU
[2017-11-02 17:28] LABS: ALT 34 U/L (9-52); AST 29 U/L (14-36); Albumin 4.2 g/dL (3.5-5.0); Alkaline Phosphatase 78 U/L (38-126); Anion Gap 12 mmol/L; Blood Urea Nitrogen 13 mg/dL (7-17); Calcium 9.8 mg/dL (8.4-10.2); Carbon Dioxide 25 mmol/L (22-30); Chloride 105 mmol/L (98-107); Glucose 160 mg/dL (74-99); Sodium 142 mmol/L (137-145); Total Bilirubin 0.3 mg/dL (0.2-1.3); Total Protein 7.3 g/dL (6.3-8.2)
[2017-11-02 17:40] LABS: Creatine Kinase 50 U/L (30-135)
[2017-11-02] MEDS ORDERED: tPA (Alteplase) PER PHARMACY 1 EACH MISC MISCELLANE PRN (17:44)
--- NOTE | 2017-11-02 17:44 | CT ---
EXAMINATION TYPE: CT brain wo con for TPA DATE OF EXAM: 11/02/2017 COMPARISON: None HISTORY: Patient complains of left side weakness. CT DLP: 1000.9 mGycm Automated exposure control for dose reduction was used. FINDINGS: There is no acute intracranial hemorrhage, mass effect, or midline shift identified. The ventricles and sulci are within normal limits in size. Suspect there may be some White matter demyelination gifty nge, correlate for possible multiple sclerosis. The globes are intact and the visualized sinuses are clear. IMPRESSION: No acute intracranial hemorrhage, mass effect, or midline shift is seen. White matter demyelination s uspected, consider brain MRI.
[2017-11-02] MEDS ORDERED: ALTEPLASE IV STA ×2 (17:46→17:48)
[2017-11-02] MEDS ORDERED: ALTEPLASE BOLUS 8 MG in EMPTY SYRINGE 1 SYR IV STA (17:46)
[2017-11-02 17:54] LABS: Creatine Kinase MB 0.3 ng/mL (0.0-2.4); Troponin I <0.012 ng/mL (0.000-0.034)
[2017-11-02 18:21] VITALS: PULSE 88
--- NOTE | 2017-11-02 18:21 | CT ---
EXAMINATION TYPE: CT angio head neck DATE OF EXAM: 11/02/2017 HISTORY: Left sided weakness COMPARISON: NONE CT DLP: 406.6 mGycm. Automated Exposure Control for Dose Reduction was Utilized. TECHNIQUE: CTA scan of the neck is performed with IV Contrast, patient injected with 65 mL of Omnipa que 350, axial images are obtained, coronal and sagittal reformatted images are reviewed. Three-D rec onstructed images are created on an independent workstation and reviewed. FINDINGS: Carotid/Vascular Structures: Patent, there is no filling defect evident, no embolus. Three-vessel arc h is present. No evident carotid stenosis. External and internal carotid arteries are patent, left an d right subclavian arteries are patent. The innominate artery is patent, vertebral arteries are paten t. [place] anterior and posterior circulations are patent. No evident aneurysm or filling defec t. Other: Lung apices are unremarkable. IMPRESSION: No significant abnormality is seen.
[2017-11-02 18:22] VITALS: BP 133/58
--- NOTE | 2017-11-02 19:10 | XR ---
EXAMINATION TYPE: XR chest 1V portable DATE OF EXAM: 11/02/2017 COMPARISON: Prior chest x-ray dated 07/06/2016 HISTORY: Altered mental status TECHNIQUE: Single frontal view of the chest is obtained. FINDINGS: No interval change. IMPRESSION: No acute process.
== END 2017-11-02 19:00 | disposition other institution (70) ==
LOC: EC 16:39
DX: I63.9 Cerebral infarction, unspecified (principal); J44.9 Chronic obstructive pulmonary disease, unspecified; K21.9 Gastro-esophageal reflux disease without esophagitis; F17.200 Nicotine dependence, unspecified, uncomplicated; Z86.14 Personal history of Methicillin resistant Staphylococcus aureus infection; Z96.652 Presence of left artificial knee joint; Z79.51 Long term (current) use of inhaled steroids; Z79.899 Other long term (current) drug therapy; Z88.0 Allergy status to penicillin; Z88.5 Allergy status to narcotic agent; Z88.6 Allergy status to analgesic agent; Z88.8 Allergy status to other drugs, medicaments and biological substances; Z91.018 Allergy to other foods; Z91.030 Bee allergy status
CPT/HCPCS: 99291 ×2; 37195 ×2; 36415; 93005; 80053; 82550; 82553; 84484; 85025; 85610; 85730; 71045; 70496; 70450; 70498; J2997; Q9967

== ENCOUNTER → 2017-11-19 | Outpatient (CLI) | payer MEDICARE, OTHER ==
[2017-11-19 17:05] LABS: Anion Gap 13 mmol/L; Blood Urea Nitrogen 16 mg/dL (7-17); Calcium 10.3 mg/dL (8.4-10.2); Carbon Dioxide 24 mmol/L (22-30); Chloride 106 mmol/L (98-107); Glucose 124 mg/dL (74-99); Potassium 4.8 mmol/L (3.5-5.1); Sodium 143 mmol/L (137-145)
== END | disposition home or self-care (01) ==
LOC: LABWHC1 15:46
PROVIDERS: ATTEND Hospitalist
DX: E11.9 Type 2 diabetes mellitus without complications (principal)
CPT/HCPCS: 36415; 80048

== ENCOUNTER → 2018-01-19 | Outpatient (CLI) | payer MEDICARE, OTHER ==
[2018-01-19 12:27] LABS: Blood Urea Nitrogen 15 mg/dL (7-17)
--- NOTE | 2018-01-19 13:57 | CT ---
EXAMINATION TYPE: CT abdomen pelvis w con DATE OF EXAM: 01/19/2018 HISTORY: Left sided lower pain for 4 years per patient. Unspecified abdominal pain (R 10.9) per order . CT DLP: 1431.2mGycm Automated Exposure Control for Dose Reduction was Utilized. CONTRAST: CT scan of the abdomen and pelvis is performed with IV Contrast, patient injected with 100 mL of Isov ue 300. COMPARISON: CT abdomen and pelvis July 05, 2017 FINDINGS: LUNG BASES: No significant abnormality is appreciated. LIVER/GB: Liver is diffusely low dense consistent with fatty infiltration. Cholecystectomy clips are present. PANCREAS: No significant abnormality is seen. SPLEEN: No significant abnormality is seen. ADRENALS: There is persistent left adrenal mass measuring 2.2 x 1.7 cm on axial image 24, prior study Hounsfield units average just under 10 consistent with lipid rich adenoma. KIDNEYS: Asymmetric diminished size to right kidney is redemonstrated. There is symmetric cortical me dullary uptake and excretion from both kidneys without evidence of hydronephrosis bilaterally. There is mild distention of bladder without suspicious mass or wall thickening. Few scattered pelvic phlebo liths are seen. BOWEL: The oral contrast reaches level of terminal ileum. There is no suspicious small or large bowel dilatation there is mild prominence of fecal material throughout the right and transverse colon. Sofia endix is not dilated. A few appendicoliths are felt present coronal images 60 and 61. UTERUS/ADNEXA: Uterus is surgically absent or markedly atrophic in appearance. LYMPH NODES: No greater than 1cm abdominal or pelvic lymph nodes are appreciated. OSSEOUS STRUCTURES: No significant abnormality is seen. OTHER: No significant additional abnormality is seen. IMPRESSION: No significant new or acute finding is seen to account for patient's persistent clinical symptoms of left-sided pain.
== END | disposition home or self-care (01) ==
LOC: RADCTMAIN 11:48
DX: R10.9 Unspecified abdominal pain (principal); Z01.89 Encounter for other specified special examinations
CPT/HCPCS: 82565; 84520; 74177; 36415; Q9967

== ENCOUNTER → 2018-02-08 | Outpatient (CLI) | payer MEDICARE, OTHER ==
--- NOTE | 2018-02-08 12:46 | US ---
EXAMINATION TYPE: US thyroid st tissue head/neck DATE OF EXAM: 02/08/2018 COMPARISON: 02/24/2016 CLINICAL HISTORY: Thyroid Cyst, E04.1. GLAND SIZE: Right Lobe: 5.3 x 1.5 x 1.8 cm Overall Parenchyma: homogenous Left Lobe: 4.1 x 1.5 x 1.9 cm Overall Parenchyma: homogeneous Isthmus Thickness: 0.3 cm NODULES RIGHT: # of nodules measured on right: 1 1. 0.2 X 0.1 x 0.1 cm hypoechoic cystic nodule at the mid pole with well-defined margins; . This n odule is wider than tall and shows no intranodular vascularity. Prior size: 0.4 x 0.2 x 0.4 cm LEFT: # of nodules measured on left: 0 ISTHMUS: # of nodules measured in the isthmus: 0 Bilateral neck scanned, no evidence of lymphadenopathy. IMPRESSION: Subcentimeter thyroid nodularity is nonspecific.
== END | disposition home or self-care (01) ==
LOC: RADUSWWP 12:04
PROVIDERS: ATTEND Internal Medicine
DX: E04.1 Nontoxic single thyroid nodule (principal)
CPT/HCPCS: 76536

== ENCOUNTER → 2018-06-16 | Outpatient (CLI) | payer MEDICARE, OTHER ==
[2018-06-16 16:26] LABS: Basophils # (A) 0.1 k/uL (0-0.2); Basophils % (A) 1 %; Eosinophils # (A) 0.4 k/uL (0-0.7); Eosinophils % (A) 4 %; HCT 44.6 % (34.0-46.0); HGB 14.5 gm/dL (11.4-16.0); Lymphocytes # (A) 3.8 k/uL (1.0-4.8); Lymphocytes % (A) 37 %; MCH 29.9 pg (25.0-35.0); MCHC 32.4 g/dL (31.0-37.0); MCV 92.2 fL (80.0-100.0); Mean Platelet Volume 6.8; Monocytes # (A) 0.4 k/uL (0-1.0); Monocytes % (A) 4 %; Neutrophils # (A) 5.5 k/uL (1.3-7.7); Neutrophils % (A) 53 %; RBC 4.84 m/uL (3.80-5.40); RDW 14.2 % (11.5-15.5); WBC 10.3 k/uL (3.8-10.6)
[2018-06-16 16:35] LABS: ALT 20 U/L (9-52); AST 26 U/L (14-36); Albumin 4.3 g/dL (3.5-5.0); Alkaline Phosphatase 88 U/L (38-126); Anion Gap 10 mmol/L; Blood Urea Nitrogen 10 mg/dL (7-17); Calcium 9.7 mg/dL (8.4-10.2); Carbon Dioxide 25 mmol/L (22-30); Chloride 108 mmol/L (98-107); Glucose 61 mg/dL (74-99); Potassium 4.6 mmol/L (3.5-5.1); Sodium 143 mmol/L (137-145); Total Bilirubin 0.5 mg/dL (0.2-1.3); Total Protein 7.6 g/dL (6.3-8.2)
[2018-06-16 16:58] LABS: Platelet Count 286 k/uL (150-450)
== END | disposition home or self-care (01) ==
LOC: LABWHC1 15:28
DX: K76.0 Fatty (change of) liver, not elsewhere classified (principal)
CPT/HCPCS: 36415; 80053; 85025

== ENCOUNTER → 2019-11-14 | Outpatient (CLI) | payer MEDICARE, OTHER ==
[2019-11-14 15:10] LABS: Basophils # (A) 0.1 k/uL (0-0.2); Basophils % (A) 1 %; Eosinophils # (A) 0.2 k/uL (0-0.7); Eosinophils % (A) 2 %; HCT 39.9 % (34.0-46.0); HGB 13.5 gm/dL (11.4-16.0); Lymphocytes # (A) 4.2 k/uL (1.0-4.8); Lymphocytes % (A) 41 %; MCH 30.6 pg (25.0-35.0); MCHC 33.9 g/dL (31.0-37.0); MCV 90.2 fL (80.0-100.0); Mean Platelet Volume 7.1; Monocytes # (A) 0.3 k/uL (0-1.0); Monocytes % (A) 3 %; Neutrophils # (A) 5.3 k/uL (1.3-7.7); Neutrophils % (A) 51 %; Platelet Count 285 k/uL (150-450); RBC 4.43 m/uL (3.80-5.40); RDW 14.7 % (11.5-15.5); WBC 10.3 k/uL (3.8-10.6)
[2019-11-14 18:21] LABS: African American GFR (CKD) 101.8 (60.0-200.0); Albumin 4.1 g/dL (3.80-4.90); Albumin/Globulin Ratio 1.95 (1.60-3.17); Anion Gap 6.4 mmol/L (4.00-12.00); Calcium 9.5 mg/dL (8.7-10.3); Carbon Dioxide 26.6 mmol/L (21.6-31.8); Globulin 2.1 g/dL (1.6-3.3); Non-African American GFR(CKD) 87.8 (60.0-200.0); Potassium 4.2 mmol/L (3.5-5.5); Total Bilirubin 0.3 mg/dL (0.2-1.2); Total Protein 6.2 g/dL (6.2-8.2)
== END | disposition home or self-care (01) ==
LOC: LABWHC1 13:58
PROVIDERS: ATTEND Nurse Practitioner Acute Care
DX: R53.82 Chronic fatigue, unspecified (principal); G35 Multiple sclerosis; E55.9 Vitamin D deficiency, unspecified
CPT/HCPCS: 36415; 80053; 82306; 82607; 84207; 84439; 84443; 84481; 85025

== ENCOUNTER → 2019-11-27 | Outpatient (CLI) | payer MEDICARE, OTHER | END | disposition home or self-care (01) | DX: I49.9 Cardiac arrhythmia, unspecified (principal) | CPT/HCPCS: 36415; 93005 ==

== ENCOUNTER → 2020-04-02 | Outpatient (CLI) | payer MEDICARE, OTHER ==
[2020-04-02 11:41] LABS: Basophils # (A) 0.1 k/uL (0-0.2); Basophils % (A) 1 %; Eosinophils # (A) 0.4 k/uL (0-0.7); Eosinophils % (A) 3 %; HCT 41.2 % (34.0-46.0); HGB 14.1 gm/dL (11.4-16.0); Lymphocytes # (A) 4.5 k/uL (1.0-4.8); Lymphocytes % (A) 42 %; MCH 30.8 pg (25.0-35.0); MCHC 34.2 g/dL (31.0-37.0); MCV 90.2 fL (80.0-100.0); Monocytes # (A) 0.4 k/uL (0-1.0); Monocytes % (A) 4 %; Neutrophils % (A) 48 %; Platelet Count 234 k/uL (150-450); RBC 4.57 m/uL (3.80-5.40); RDW 14.4 % (11.5-15.5); WBC 10.6 k/uL (3.8-10.6)
[2020-04-02 16:33] LABS: Albumin 4.4 g/dL (3.80-4.90); Albumin/Globulin Ratio 1.83 (1.60-3.17); Anion Gap 7.2 mmol/L (4.00-12.00); Calcium 9.7 mg/dL (8.7-10.3); Carbon Dioxide 25.8 mmol/L (21.6-31.8); Globulin 2.4 g/dL (1.6-3.3); Non-African American GFR(CKD) 87.2 (60.0-200.0); Potassium 4.5 mmol/L (3.5-5.5); Total Bilirubin 0.3 mg/dL (0.2-1.2); Total Protein 6.8 g/dL (6.2-8.2)
[2020-04-02 16:40] LABS: T4, Free (Free Thyroxine) 0.9 ng/dL (0.80-1.80)
== END | disposition home or self-care (01) ==
LOC: LABWHC1 10:28
PROVIDERS: ATTEND Nurse Practitioner Acute Care
DX: G35 Multiple sclerosis (principal); M79.7 Fibromyalgia; R53.83 Other fatigue; E55.9 Vitamin D deficiency, unspecified
CPT/HCPCS: 36415; 80053; 82306; 82607; 84439; 84443; 84481; 85025

== ENCOUNTER → 2020-09-26 | Outpatient (CLI) | payer MEDICARE, OTHER ==
--- NOTE | 2020-09-26 11:50 | FL ---
EXAMINATION TYPE: FL barium swallow w video DATE OF EXAM: 09/26/2020 CLINICAL HISTORY: 49-year-old female R13.10, patient with history of MS and trouble swallowing both t hin and solid consistencies. TECHNIQUE: Deglutition study is performed utilizing thin liquid barium, barium thick applesauce, and barium coated cracker. COMPARISON: None. Total fluoroscopy time: 1 minute 33 seconds Total images: None. Real-time fluoroscopy support was provided to speech pathology. FINDINGS: Swallow initiation was mildly delayed with occasional bolus free spilling to the level of the vallecu la. There is aspiration of thin liquids on one of 6 trials. This is improved with smaller swallows. Neli l mastication is seen with solid modalities tested. The remaining tested consistencies showed no pen etration or aspiration. No significant pharyngeal residue was appreciated. IMPRESSION: Aspiration of thin liquids on 1 of 6 trials, improved with smaller swallows. Slightly delayed swallow noted. Please refer to speech therapist notes for further details if necessary.
== END | disposition home or self-care (01) ==
LOC: RADFLMAIN 10:49
PROVIDERS: ATTEND Psychiatry & Neurology Neurology
DX: R93.3 Abnormal findings on diagnostic imaging of other parts of digestive tract (principal)
CPT/HCPCS: 74230

== ENCOUNTER → 2021-01-02 | Outpatient (CLI) | payer MEDICARE, OTHER ==
[2021-01-02 23:14] LABS: HCT 40.4 % (37.2-46.3); HGB 13.7 g/dL (12.0-15.0); MCH 30.4 pg (27.0-32.0); MCHC 33.9 g/dL (32.0-37.0); MCV 89.6 fL (80.0-97.0); Mean Platelet Volume 10.1 fL (9.5-12.2); Platelet Count 275 X 10*3/uL (140-440); RBC 4.51 X 10*6/uL (4.10-5.20); RDW 14.3 % (11.5-14.5); WBC 10.95 X 10*3/uL (4.50-10.00)
[2021-01-03 00:02] LABS: Basophils # (A) 0.07 X 10*3/uL (0.00-0.10); Basophils % (A) 0.6 %; Eosinophils # (A) 0.31 X 10*3/uL (0.04-0.35); Eosinophils % (A) 2.8 %; Lymphocytes # (A) 4.72 X 10*3/uL (0.90-5.00); Lymphocytes % (A) 43.1 %; Monocytes # (A) 0.43 X 10*3/uL (0.20-1.00); Monocytes % (A) 3.9 %; Neutrophils # (A) 5.37 X 10*3/uL (1.80-7.70); Neutrophils % (A) 49.1 %
[2021-01-03 13:26] LABS: African American GFR (CKD) 100.3 (60.0-200.0); Albumin 4.5 g/dL (3.80-4.90); Albumin/Globulin Ratio 1.96 (1.60-3.17); Anion Gap 16.9 mmol/L (4.00-12.00); BUN/Creat Ratio 17.5 Ratio (12.00-20.00); Calcium 9.4 mg/dL (8.7-10.3); Carbon Dioxide 16.1 mmol/L (21.6-31.8); Globulin 2.3 g/dL (1.6-3.3); Non-African American GFR(CKD) 86.6 (60.0-200.0); Potassium 4.5 mmol/L (3.5-5.5); Total Bilirubin 0.3 mg/dL (0.2-1.2); Total Protein 6.8 g/dL (6.2-8.2)
== END | disposition home or self-care (01) ==
LOC: LABWHC1 15:13
PROVIDERS: ATTEND Nurse Practitioner Acute Care
DX: Z51.81 Encounter for therapeutic drug level monitoring (principal); G35 Multiple sclerosis; E55.9 Vitamin D deficiency, unspecified
CPT/HCPCS: 36415; 80053; 82306; 82607; 84207; 85025

== ENCOUNTER 2021-01-23 13:41 | Emergency (ER) | payer MEDICARE, OTHER ==
[2021-01-23 13:44] VITALS: BP 170/86; PULSE 108; RESP 18; TEMP 98.8
[2021-01-23] MEDS ORDERED: ACETAMINOPHEN TAB 500 MG TAB PO STA (14:03)
--- NOTE | 2021-01-23 14:08 | ED ---
Upper Extremity HPI - General Chief Complaint: Extremity Injury, Upper Stated Complaint: wrist pain Time Seen by Provider: 01/23/21 14:00 Source: patient, RN notes reviewed Mode of arrival: ambulatory Limitations: no limitations - History of Present Illness Initial Comments: 50-year-old female presented emergency department complaining of left wrist everardo n. She also she does have a history of chronic wrist pain or feels like one of her carpal bones, shift some pops out of place. She notes that she is usually able to pop it back in place with no issue. She notes today she was unable to pop back complaints. She notes that she was pushing herself off the couch to get up and stand when she felt a pop. She does use a cane in her right hand to walk. She notes the pain is a 6 out of 10 with no relief. She did note that she has full sensation and strength in her fingers is just hard to move her hand secondary to pain. She denied any weakness numbness tingling chest pain shortness of breath headache nausea vomiting diarrhea constipation fever fatigue chills. - Related Data Home Medications Medication Instructions Recorded Confirmed Ranitidine HCl [Zantac] 150 mg PO BID 05/29/14 07/27/18 Beclomethasone Dipropionate [Qvar 2 puff INHALATION RT-BID 05/11/16 07/27/18 80 mcg/puff] Albuterol Sulfate [Proair Hfa] 2 puff INHALATION RT-BID 11/02/17 07/27/18 Nitroglycerin Sl Tabs [Nitrostat] 0.4 mg SUBLINGUAL Q5M PRN 11/02/17 07/27/18 Atorvastatin Calcium [Lipitor] 40 mg PO DAILY 07/27/18 07/27/18 Glimepiride [Amaryl] 1 mg PO BID 07/27/18 07/27/18 Previous Rx's Medication Instructions Recorded Albuterol Inhaler (Mhu) [Ventolin 1 - 2 puff INHALATION Q4HR PRN #1 07/27/18 Hfa Inhaler (Mhu)] inhaler Azithromycin [Zithromax Z-pack] 0 mg PO DIRECTED #6 tab 07/27/18 Allergies Allergy/AdvReac Type Severity Reaction Status Date / Time venom-honey bee Allergy Severe Anaphylaxis Verified 07/27/18 12:09 [bee venom (honey bee)] amoxicillin [Amoxicillin] Allergy Anaphylaxis Verified 07/27/18 12:09 aspirin Allergy Anaphylaxis Verified 07/27/18 12:09 chocolate flavor Allergy Swelling Verified 07/27/18 12:09 hydrocodone [From [place]] Allergy Rash/Hives Verified 07/27/18 12:09 NSAIDS (Non-Steroidal Allergy Swelling Verified 07/27/18 12:09 Anti-Inflamma Penicillins Allergy Anaphylaxis Verified 07/27/18 12:09 prednisone Allergy Anaphylaxis Verified 07/27/18 12:09 propoxyphene napsylate Allergy Rash/Hives Verified 07/27/18 12:09 [From Darvocet-N] strawberry [[place]] Allergy Swelling Verified 07/27/18 12:09 tomato [Tomato] Allergy Swelling Verified 07/27/18 12:09 zonisamide [From Zonegran] Allergy Swelling Verified 07/27/18 12:09 famotidine [From Pepcid] AdvReac Vomiting Verified 07/27/18 12:09 Review of Systems ROS Statement: Those systems with pertinent positive or pertinent negative responses have been documented in the HPI. ROS Other: All systems not noted in ROS Statement are negative. Past Medical History Past Medical History: Asthma, COPD, GERD/Reflux, Sleep Apnea/CPAP/BIPAP, Thyroid Disorder Additional Past Medical History / Comment(s): USES NO CPAP. CHonic back pain (buldging discs). Hiatal hernia. MIGRAINES. History of Any Multi-Drug Resistant Organisms: MRSA Date of last positivie culture/infection: 08/13/2007 MDRO Source:: LEFT KNEE Past Surgical History: Hysterectomy Additional Past Surgical History / Comment(s): Total of 13 surgeries on her L knee including lt knee replacement x 3, lt leg contains rods, L benign breast mass removed, EGD with BX, right foot tendon release, stacey oopherectomies, cardiac loop oct Past Anesthesia/Blood Transfusion Reactions: No Reported Reaction Additional Past Anesthesia/Blood Transfusion Reaction / Comment(s): Pt received blood with one of her L knee surgeries without reaction X 2. Past Psychological History: No Psychological Hx Reported Smoking Status: Current every day smoker Past Alcohol Use History: None Reported Past Drug Use History: None Reported - Past Family History Mother Family Medical History: Deep Vein Thrombosis (DVT) Additional Family Medical History / Comment(s): Mother of a blood clot that went to her heart. Father Family Medical History: No Reported History Additional Family Medical History / Comment(s): Father of "natural causes" at the age of 85 yrs. General Exam Limitations: no limitations General appearance: alert, in no apparent distress, obese Head exam: Present: atraumatic, normocephalic, normal inspection Eye exam: Present: normal appearance, PERRL, EOMI. Absent: scleral icterus, conjunctival injection, periorbital swelling Neck exam: Present: normal inspection Respiratory exam: Present: normal lung sounds bilaterally. Absent: respiratory distress, wheezes, rales, rhonchi, stridor Cardiovascular Exam: Present: regular rate, normal rhythm, normal heart sounds. Absent: systolic murmur, diastolic murmur, rubs, gallop, clicks Extremities exam: Present: normal inspection, full ROM, normal capillary refill. Absent: tenderness, pedal edema, joint swelling, calf tenderness Left Hand Wrist exam: Present: tenderness (Tenderness over the lunate to light palpation.) Vascular: Present: normal capillary refill, radial pulse (2+ bilaterally) Neurological exam: Present: alert, oriented X3, CN II-XII intact Psychiatric exam: Present: normal affect, normal mood Skin exam: Present: warm, dry, intact, normal color. Absent: rash Course Vital Signs 01/23/21 13:42 Temperature 98.8 F Pulse Rate 108 H Respiratory 18 Rate Blood Pressure 170/86 O2 Sat by Pulse 98 Oximetry Medical Decision Making - Medical Decision Making 50-year-old female complaining of left hand pain states she is unable to pop back into place. X-rays of the hand and wrist, 1000 mg of Tylenol ordered for pain. Trace negative for any acute fractures dislocations or soft tissue swelling. Case discussed with Dr. Nicholas, patient can discharge home with follow-up to primary care and hand specialist as needed. - Radiology Data Radiology results: report reviewed, image reviewed Left wrist and hand x-ray There is no acute fracture dislocation evident to joint spaces appear within normal limits. Overlying soft tissue peers unremarkable Disposition Clinical Impression: Left hand pain Disposition: HOME SELF-CARE Condition: Stable Instructions (If sedation given, give patient instructions): Hand Sprain (ED) Additional Instructions: Please return to the Emergency Department if symptoms worsen or any other concerns. Follow-up with primary care and hand specialist as needed. Continue take at home medications as prescribed. Is patient prescribed a controlled substance at d/c from ED?: No Referrals: Paula Hudson MD [Primary Care Provider] - 1-2 days Anshul Alston DO [Doctor of Osteopathic Medicine] - 1-2 days Time of Disposition: 14:55
--- NOTE | 2021-01-23 14:35 | XR ---
EXAMINATION TYPE: XR wrist complete LT, XR hand complete LT DATE OF EXAM: 01/23/2021 CLINICAL HISTORY: pain TECHNIQUE: Frontal, lateral and oblique images of the left hand are obtained. COMPARISON: None. FINDINGS: There is no acute fracture/dislocation evident. The joint spaces appear within normal limi ts. The overlying soft tissue appears unremarkable. IMPRESSION: There is no acute fracture or dislocation. ICD 10 NO FRACTURE, INITIAL EVALUATION EXAMINATION TYPE: XR wrist complete LT, XR hand complete LT DATE OF EXAM: 01/23/2021 CLINICAL HISTORY: pain TECHNIQUE: Frontal, lateral and oblique images of the left wrist are obtained. COMPARISON: None. FINDINGS: There is no acute fracture/dislocation evident. The joint spaces appear within normal knutson its. The overlying soft tissue appears unremarkable. IMPRESSION: There is no acute fracture or dislocation seen. ICD 10 NO FRACTURE, INITIAL EVALUATION
== END 2021-01-23 15:04 | disposition home or self-care (01) ==
LOC: EC 13:41
DX: M79.642 Pain in left hand (principal); M25.532 Pain in left wrist; J44.9 Chronic obstructive pulmonary disease, unspecified; K21.9 Gastro-esophageal reflux disease without esophagitis; G47.30 Sleep apnea, unspecified; G43.909 Migraine, unspecified, not intractable, without status migrainosus; F17.200 Nicotine dependence, unspecified, uncomplicated; Z79.51 Long term (current) use of inhaled steroids; Z88.0 Allergy status to penicillin
CPT/HCPCS: 99283

== ENCOUNTER → 2021-02-06 | Outpatient (CLI) | payer MEDICARE, OTHER | END | disposition home or self-care (01) | LOC: LABWHC1 10:53 | PROVIDERS: ATTEND Nurse Practitioner Acute Care | DX: E55.9 Vitamin D deficiency, unspecified (principal); G35 Multiple sclerosis | CPT/HCPCS: 36415 ==

== ENCOUNTER → 2021-04-11 | Outpatient (CLI) | payer MEDICARE, OTHER ==
[2021-04-11 16:41] LABS: Basophils # (A) 0.1 k/uL (0-0.2); Basophils % (A) 1 %; Eosinophils # (A) 0.3 k/uL (0-0.7); Eosinophils % (A) 3 %; HCT 42.4 % (34.0-46.0); HGB 14.4 gm/dL (11.4-16.0); Lymphocytes # (A) 4.8 k/uL (1.0-4.8); Lymphocytes % (A) 42 %; MCH 31.5 pg (25.0-35.0); MCHC 34.1 g/dL (31.0-37.0); MCV 92.6 fL (80.0-100.0); Monocytes # (A) 0.3 k/uL (0-1.0); Monocytes % (A) 2 %; Neutrophils # (A) 5.7 k/uL (1.3-7.7); Neutrophils % (A) 50 %; Platelet Count 277 k/uL (150-450); RBC 4.57 m/uL (3.80-5.40); RDW 15.3 % (11.5-15.5); WBC 11.4 k/uL (3.8-10.6)
[2021-04-11 16:45] LABS: Potassium 4.6 mmol/L (3.5-5.1)
== END | disposition home or self-care (01) ==
LOC: LABPAT 15:25
PROVIDERS: ATTEND Orthopaedic Surgery
DX: Z01.812 Encounter for preprocedural laboratory examination (principal); G56.02 Carpal tunnel syndrome, left upper limb
CPT/HCPCS: 36415; 80051; 85025

== ENCOUNTER 2021-04-24 12:11 | Day surgery (SDC) | payer MEDICARE, OTHER ==
[2021-04-21 16:18] VITALS: BMI 37.1
--- NOTE | 2021-04-24 01:22 | HP ---
HISTORY AND PHYSICAL REASON FOR ADMISSION: Surgery scheduled for 04/24/2021 HISTORY OF PRESENT ILLNESS: Tamara May is a 50-year-old patient seen with symptomatic left carpal tunnel syndrome. We discussed options. She elected to proceed with decompression of the left median nerve. Consent was obtained. PAST MEDICAL HISTORY: Asthma, hypertension, hyperlipidemia, ayo-keogflr-lpkyvdtdm diabetes. PAST SURGICAL HISTORY: Right carpal tunnel surgery, cholecystectomy, knee arthroscopy, hysterectomy, appendectomy. MEDICATIONS: Lipitor, loperamide, Plavix, Symbicort, Verapamil, vitamins. ALLERGIES: ARE ASPIRIN, ALEVE, CELEBREX, MOBIC, MOTRIN, NAPROSYN, NORCO, PREDNISONE, ULTRAM. SOCIAL HISTORY: She smokes half pack of cigarettes daily. PHYSICAL EVALUATION: Of the left wrist she has a positive carpal compression and carpal Tinel's causing numbness and tingling throughout the median nerve distribution. She does have some decreased sensation throughout the median nerve distribution. She is nontender along the A1 antonette sites. She has good perfusion distally. There is a good radial pulse present. RADIOGRAPHS: Radiographs of the left wrist revealed some osteoarthritic changes. IMPRESSION: 1. Left carpal tunnel syndrome. 2. Hypertension. 3. Hyperlipidemia. 4. Vmz-bmustjt-juwooeisz dependent diabetes. PLAN: Decompression left median nerve. Surgery 04/24/2021. MMODL / IJN: [id number] /
[~2021-04-24 12:11] MED LIST changes: +CLINDAMYCIN 900 MG in DEXTROSE 5% IN WATER 50 ML IVPB PRN; -LACTATED RINGERS 1,000 ML IV SCH; +ONDANSETRON 4 MG/2 ML VIAL IVP ONE; +fentaNYL (PF) 50 MCG/ML 2 ML AMP IV PRN
[2021-04-24 12:51] VITALS: RESP 16; TEMP 97.8
[2021-04-24 13:07] LABS: Glucose,Whole Blood 186 mg/dL (75-99)
[2021-04-24] MEDS ORDERED: IPRATROPIUM-ALBUTEROL 3 ML NEB INHALATION STA (13:08)
[2021-04-24] MEDS: LACTATED RINGERS 1,000 ML IV SCH ×2 (13:14→13:24)
[2021-04-24] MEDS ORDERED: DEXAMETHASONE SOD PHOSPHATE 4 MG/ML 1 ML VIAL IVP ONE (13:15)
[2021-04-24] MEDS ORDERED: LIDOCAINE 1% INJ 10MG/ML (20 ML MDV) ONE (13:20)
[2021-04-24] MEDS ORDERED: fentaNYL (PF) 50 MCG/ML 2 ML AMP ONE (13:20)
[2021-04-24] MEDS ORDERED: MIDAZOLAM 2 MG/2 ML VIAL ONE (13:20)
[2021-04-24] MEDS ORDERED: PROPOFOL 10 MG/ML 20 ML VIAL IV ONE (13:20)
[2021-04-24] MEDS ORDERED: BUPIVACAINE (PF) 0.25% 30 ML VIAL SQ ONE ×2 (13:23→13:35)
--- NOTE | 2021-04-24 13:53 | P.OP ---
Date of Procedure: 04/24/21 Preoperative Diagnosis: Left carpal tunnel syndrome Postoperative Diagnosis: Left carpal tunnel syndrome Procedure(s) Performed: Decompression left median nerve Anesthesia: MAC, local Surgeon: Hero Romero Estimated Blood Loss (ml): 0 Pathology: none sent Condition: stable Disposition: PACU Indications for Procedure: 50-year-old patient seen with symptomatic left carpal syndrome. After having treatment options discussed, she elected to proceed with decompression left me sal nerve. Operative Findings: see description of procedure Description of Procedure: The patient was taken to the operative suite. The patient received preoperative IV antibiotics. A well-padded tourniquet was placed proximal left upper extremity. Left upper extremity was prepped and draped in the normal sterile orthopedic fashion. The proposed incision site was infiltrated with 10 mL quarter percent plain Marcaine. Once sufficient local analgesia was noted the extremity was elevated and tourniquet insufflated to 250. I made an incision beginning at the distal volar wrist crease extending disc proximal to 3 cm in line with the fourth metacarpal sharply through skin. I dissected down through the subcutaneous soft tissues and through the palmar fascia to the transverse carpal ligament. I made a small char incision through the transverse carpal ligament. I completed the release of the transverse carpal ligament proximally and distally with blunt Metzenbaums. I noted complete release of transverse carpal ligament and good decompression of the nerve. We had good hemostasis. The wound was irrigated. The skin margins were proximal nylon suture. I applied sterile dressings. The tourniquet was now released and immediate capillary refill noted. Sterile Coban was applied. The patient was awakened and transferred to recovery in stable condition.
[2021-04-24 14:14] VITALS: BP 104/65; PULSE 87
== END 2021-04-24 14:33 | disposition home or self-care (01) ==
LOC: OR 12:11
PROVIDERS: ATTEND Orthopaedic Surgery
DX: G56.02 Carpal tunnel syndrome, left upper limb (principal); J44.9 Chronic obstructive pulmonary disease, unspecified; G47.33 Obstructive sleep apnea (adult) (pediatric); F17.200 Nicotine dependence, unspecified, uncomplicated; E07.9 Disorder of thyroid, unspecified; E11.9 Type 2 diabetes mellitus without complications; Z86.73 Personal history of transient ischemic attack (TIA), and cerebral infarction without residual deficits; G35 Multiple sclerosis; G43.909 Migraine, unspecified, not intractable, without status migrainosus; K21.9 Gastro-esophageal reflux disease without esophagitis
CPT/HCPCS: 64721; 94640; J2250; J1100; J2405; J2001; J3010; J2704

== ENCOUNTER → 2021-09-09 | Outpatient (CLI) | payer MEDICARE, OTHER ==
[2021-09-09 18:33] LABS: HCT 44.5 % (37.2-46.3); HGB 14.3 g/dL (12.0-15.0); MCH 29.7 pg (27.0-32.0); MCHC 32.1 g/dL (32.0-37.0); MCV 92.3 fL (80.0-97.0); Mean Platelet Volume 9.7 fL (9.5-12.2); Platelet Count 292 X 10*3/uL (140-440); RBC 4.82 X 10*6/uL (4.10-5.20); RDW 13.9 % (11.5-14.5); WBC 12.28 X 10*3/uL (4.50-10.00)
[2021-09-09 19:14] LABS: Basophils # (M) 0 X 10*3/uL (0.00-0.10); Eosinophils # (M) 0.37 X 10*3/uL (0.04-0.35); Monocytes # (M) 0.12 X 10*3/uL (0.20-1.00); Neutrophils # (M) 6.39 X 10*3/uL (2.00-8.90); Neutrophils % (M) 52 %
[2021-09-09 19:20] LABS: ALT 37 U/L (8-44); AST 21 U/L (13-35); African American GFR (CKD) 117.9 (60.0-200.0); Albumin 4.4 g/dL (3.8-4.9); Albumin/Globulin Ratio 1.76 (1.60-3.17); Alkaline Phosphatase 94 U/L (41-126); BUN/Creat Ratio 12.71 Ratio (12.00-20.00); Blood Urea Nitrogen 8.9 mg/dL (9.0-27.0); Calcium 9.7 mg/dL (8.7-10.3); Carbon Dioxide 21.5 mmol/L (20.0-27.5); Chloride 107 mmol/L (96-109); Globulin 2.5 g/dL (1.6-3.3); Glucose 117 mg/dL (70-110); Non-African American GFR(CKD) 101.7 (60.0-200.0); Potassium 4.5 mmol/L (3.5-5.5); Sodium 141 mmol/L (135-145); Total Bilirubin <0.20 mg/dL (0.30-1.20); Total Protein 6.9 g/dL (6.2-8.2)
== END | disposition home or self-care (01) ==
LOC: LABWHC1 13:42
PROVIDERS: ATTEND Psychiatry & Neurology Neurology
DX: Z51.81 Encounter for therapeutic drug level monitoring (principal); G35 Multiple sclerosis; E55.9 Vitamin D deficiency, unspecified; E53.9 Vitamin B deficiency, unspecified
CPT/HCPCS: 36415; 80053; 82306; 82607; 84207; 85025

== ENCOUNTER → 2022-01-13 | Outpatient (CLI) | payer MEDICARE, OTHER ==
--- NOTE | 2022-01-13 15:12 | XR ---
EXAMINATION TYPE: XR chest 2V DATE OF EXAM: 01/13/2022 COMPARISON: Chest x-ray 07/27/2018 HISTORY: Cough and shortness of breath TECHNIQUE: Frontal and lateral views of the chest are obtained. FINDINGS: There is no focal air space opacity, pleural effusion, or pneumothorax seen. The cardiac silhouette size is within normal limits. There is a lead present consistent with spinal cord stimula tor at the level of the mid thoracic spine. Overlying loop recorder has been removed in the interval. There is eventration of right hemidiaphragm which is elevated. There is thoracic spondylosis. The os seous structures are intact. IMPRESSION: No acute cardiopulmonary process.
== END | disposition home or self-care (01) ==
LOC: RADXRMAIN 14:48
PROVIDERS: ATTEND Internal Medicine
DX: R05.9 Cough, unspecified (principal); R06.02 Shortness of breath
CPT/HCPCS: 71046

== ENCOUNTER → 2022-02-27 | Outpatient (CLI) | payer MEDICARE, OTHER ==
--- NOTE | 2022-02-27 15:05 | US ---
EXAMINATION TYPE: US abdomen limited DATE OF EXAM: 02/27/2022 COMPARISON: CT 2017, US 2016 CLINICAL HISTORY: D35.02 BENIGN NEOPLASM OF LEFT ADRENAL GLAND. Left adrenal mass seen on 2017 CT EXAM MEASUREMENTS: Spleen: 10.9 cm Left Kidney: 13.3 x 5.1 x 4.7 cm 1. Spleen: wnl 2. Left Kidney: possible double collecting system, no hydronephrosis or masses seen Left adrenal gland not seen at this time IMPRESSION: Poor visualization of the left adrenal gland. Duplicated collecting system left kidney.
== END | disposition home or self-care (01) ==
LOC: RADUSWWP 14:32
PROVIDERS: ATTEND Internal Medicine
DX: D35.02 Benign neoplasm of left adrenal gland (principal)
CPT/HCPCS: 76705

== ENCOUNTER → 2023-01-04 | Outpatient (CLI) | payer MEDICARE, OTHER ==
[2023-01-05 02:13] LABS: Eosinophils # (A) 0.42 X 10*3/uL (0.04-0.35); HCT 48.3 % (37.2-46.3); HGB 15.3 g/dL (12.0-15.0); Immature Grans, Automated 0.4 %; Lymphocytes # (A) 4.92 X 10*3/uL (0.90-5.00); Lymphocytes % (A) 46.8 %; MCH 29.7 pg (27.0-32.0); MCHC 31.7 g/dL (32.0-37.0); MCV 93.8 fL (80.0-97.0); Mean Platelet Volume 10.3 fL (9.5-12.2); Monocytes # (A) 0.52 X 10*3/uL (0.20-1.00); Monocytes % (A) 4.9 %; NRBC Per 100 WBC 0.3 /100 WBCS (0.0-0.0); Neutrophils # (A) 4.52 X 10*3/uL (1.80-7.70); Neutrophils % (A) 42.9 %; Platelet Count 256 X 10*3/uL (140-440); RBC 5.15 X 10*6/uL (4.10-5.20); RDW 14.8 % (11.5-14.5); WBC 10.52 X 10*3/uL (4.50-10.00)
[2023-01-05 02:16] LABS: % Iron Saturation 30.96 (12.00-45.00); T4, Free (Free Thyroxine) 1.19 ng/dL (0.800-1.800)
[2023-01-05 03:05] LABS: African American GFR (CKD) 83.8 (60.0-200.0); Albumin 4.5 g/dL (3.8-4.9); Albumin/Globulin Ratio 1.63 (1.60-3.17); Anion Gap 11.7 mmol/L (10.00-18.00); BUN/Creat Ratio 11.22 Ratio (12.00-20.00); Blood Urea Nitrogen 10.3 mg/dL (9.0-27.0); Calcium 9.9 mg/dL (8.7-10.3); Carbon Dioxide 24.3 mmol/L (20.0-27.5); Globulin 2.7 g/dL (1.6-3.3); Non-African American GFR(CKD) 72.3 (60.0-200.0); Potassium 5.5 mmol/L (3.5-5.5); Total Bilirubin 0.3 mg/dL (0.30-1.20); Total Protein 7.2 g/dL (6.2-8.2)
== END | disposition home or self-care (01) ==
LOC: LABWHC1 13:52
PROVIDERS: ATTEND Nurse Practitioner Acute Care
DX: Z51.81 Encounter for therapeutic drug level monitoring (principal); E55.9 Vitamin D deficiency, unspecified; E53.9 Vitamin B deficiency, unspecified; G35 Multiple sclerosis; R53.83 Other fatigue
CPT/HCPCS: 36415; 80053; 82306; 82607; 83540; 83550; 84207; 84439; 84443; 84481; 85025

== ENCOUNTER → 2023-02-18 | Outpatient (CLI) | payer MEDICARE, OTHER ==
[2023-02-18 15:53] LABS: Blood Urea Nitrogen 9.9 mg/dL (9.0-27.0); Carbon Dioxide 22.8 mmol/L (21.6-31.8); Chloride 105 mmol/L (96-109); Potassium 3.9 mmol/L (3.5-5.5); Sodium 142 mmol/L (135-145)
[2023-02-18 20:43] LABS: HCT 46.8 % (37.2-46.3); MCHC 32.1 d/dL (32.0-37.0); MCV 93.6 FL (80.0-97.0); Mean Platelet Volume 10.7 FL (9.5-12.2); NRBC Per 100 WBC 0.03 X 10*3/uL (0.00-0.01); Platelet Count 235 X 10*3/uL (140-440); RDW 15.2 % (11.5-14.5); WBC 11.63 X 10*3/uL (4.50-10.00)
== END | disposition home or self-care (01) ==
LOC: LABPAT 07:32
PROVIDERS: ATTEND Internal Medicine Interventional Cardiology
DX: Z01.812 Encounter for preprocedural laboratory examination (principal); R94.39 Abnormal result of other cardiovascular function study
CPT/HCPCS: 36415; 80051; 82565; 84520; 85027

== ENCOUNTER 2023-02-25 08:26 | Day surgery (SDC) | payer MEDICARE, OTHER ==
[~2023-02-25 08:26] MED LIST changes: +ALPRAZolam 0.25 MG TAB PO PRN; +ALPRAZolam 0.5 MG TAB PO PRN; +ASPIRIN 325 MG TAB PO STA; +ATORVASTATIN 80 MG TAB PO STA; -CLINDAMYCIN 900 MG in DEXTROSE 5% IN WATER 50 ML IVPB PRN; +HEPARIN SODIUM,PORCINE 10,000 UNIT in SODIUM CHLORIDE 0.9% 1,000 ML IRRIGATION PRN; +HEPARIN SODIUM,PORCINE 2,500 UNIT in SODIUM CHLORIDE 0.9% 250 ML IRRIGATION PRN; +NITROGLYCERIN SL TABS 0.4 MG TAB SUBLINGUAL PRN; -ONDANSETRON 4 MG/2 ML VIAL IVP ONE; +SODIUM CHLORIDE 0.9% 1,000 ML in EMPTY BAG 1 BAG IV SCH; -fentaNYL (PF) 50 MCG/ML 2 ML AMP IV PRN
[2023-02-25 09:19] LABS: Glucose,Whole Blood 106 mg/dL (70-110)
[2023-02-25 09:21] VITALS: RESP 18; TEMP 97.1
[2023-02-25] MEDS ORDERED: fentaNYL (PF) 50 MCG/ML 2 ML AMP ONE (10:20)
[2023-02-25] MEDS ORDERED: VERAPAMIL 2.5 MG/ML 2 ML AMP ONE (10:26)
[2023-02-25] MEDS ORDERED: fentaNYL (PF) 50 MCG/1 ML VIAL IV ONE (10:32)
[2023-02-25] MEDS ORDERED: MIDAZOLAM 2 MG/2 ML VIAL IV ONE (10:32)
[2023-02-25] MEDS ORDERED: LIDOCAINE 1% INJ 10MG/ML (5 ML VIAL-PF) SQ ONE (10:32)
[2023-02-25] MEDS ORDERED: VERAPAMIL SYRINGE (5 MG/10 ML) INTRAARTER ONE (10:32)
[2023-02-25] MEDS ORDERED: HEPARIN SODIUM 1,000 UN/ML (10ML VL) ONE (10:34)
[2023-02-25] MEDS ORDERED: HEPARIN SODIUM 1,000 UN/ML (10ML VL) IV ONE (10:37)
[2023-02-25] MEDS ORDERED: IOPAMIDOL-300 100ML BTL INJ ONE (10:43)
[2023-02-25] MEDS ORDERED: RX INFO: IV CONTRAST WAS GIVEN 1 EACH MISC MISCELLANE PRN (10:51)
--- NOTE | 2023-02-25 10:56 | P.CARDCATH ---
Date of Procedure: 02/25/23 Description of Procedure: Cardiac Catheterization: The patient is a 52-year-old female with known history of hypertension, hyperlipidemia, diabetes mellitus who has been complaining of chest discomfort and had an abnormal MPI. She has been evaluated by Dr. Schmitt. Recommendations were made regarding cardiac catheterization, the risks and the complications were discussed with the patient who is in full understanding and agreement. Procedure Description: Patient was brought to mobile lab technician in fasting semi-sedated state after receiving Fentanyl and Benadryl achieiving moderate conscious sedated state. Using Xylocaine Anesthesia and Seldinger technique, a 6-Haitian sheath was introduced in the right radial artery . Subsequently, selective coronary angiography was performed using a 5-Haitian 3.5 bend Galindo catheter. Multiple views of the coronary artery including hemiaxial views were obtained. The right Galindo catheter was used to cross the aortic valve and LVEDP was calculated. Following that, catheter and sheath were removed. Hemostasis was obtained with deployment of TR band . There was no immediate complication. Patient was returned to room in stable condition. Of note, the patient received a total of 4500 units of intravenous heparin as well as intra-arterial verapamil. Findings: Left main: This is a large size vessel, bifurcating into LAD and left circumflex, left main has no obstructive disease LAD: This is a large size vessel reaching to the apex giving rise to 3 small to moderate diagonal branch, the LAD has no evidence of obstructive disease. Left circumflex: This is a nondominant vessel giving rise to 2 large obtuse marginal branch, the left circumflex and its branches have no obstructive disease RCA: This is a large dominant vessel, has a superior takeoff, bifurcating distally into PDA and PLV. The RCA and its branches have no evidence of obstructive disease. Left Ventriculogram: Not performed Hemodynamics: There was no gradient across the aortic valve , LVEDP was 14-16 mmHg Conclusion: 1. No evidence of obstructive CAD 2. Right dominance 3. Normal LVEDP Recommendations: I see no evidence of obstructive disease to explain her symptoms. Her stress test most likely represents a false positive. She will continue on aggressive coronary risks modifications. The findings and the recommendations were discussed with the patient and the family and they were in full understanding and agreement. Duration of sedation is 14 minutes.
[2023-02-25] MEDS ORDERED: SODIUM CHLORIDE 0.9% 1,000 ML IV SCH (11:00)
[2023-02-25 14:58] VITALS: BP 138/62; PULSE 64
[2023-02-25] MEDS ORDERED: GLIMEPIRIDE 1 MG TAB PO SCH (21:00)
[2023-02-25] MEDS ORDERED: OXYBUTYNIN XL 5 MG TAB.ER.24 PO SCH (21:00)
[2023-02-25] MEDS ORDERED: PANTOPRAZOLE 40 MG TABLET PO SCH (21:00)
[2023-02-25] MEDS ORDERED: ATORVASTATIN 40 MG TAB PO SCH (21:00)
[2023-02-25] MEDS ORDERED: NON FORMULARY DRUG (Empagliflozin [Jardiance] 10 MG Tablet) PO SCH (21:00)
[2023-02-26] MEDS ORDERED: NON FORMULARY DRUG (Sitagliptin 100 MG Tab) PO SCH (09:00)
[2023-02-26] MEDS ORDERED: LOSARTAN 25 MG TAB PO SCH (09:00)
== END 2023-02-25 15:09 | disposition home or self-care (01) ==
LOC: CATHCVL 08:26
PROVIDERS: ATTEND Internal Medicine Interventional Cardiology
DX: R94.39 Abnormal result of other cardiovascular function study (principal); I10 Essential (primary) hypertension; E78.5 Hyperlipidemia, unspecified; E11.9 Type 2 diabetes mellitus without complications; F17.210 Nicotine dependence, cigarettes, uncomplicated; Z82.49 Family history of ischemic heart disease and other diseases of the circulatory system; Z79.51 Long term (current) use of inhaled steroids; Z79.84 Long term (current) use of oral hypoglycemic drugs; Z79.899 Other long term (current) drug therapy; Z88.0 Allergy status to penicillin; Z88.5 Allergy status to narcotic agent; Z88.6 Allergy status to analgesic agent; Z88.8 Allergy status to other drugs, medicaments and biological substances
CPT/HCPCS: 93458; 99152; C1769 ×2; C1894; J2250; J2001; J1644; Q9967; J3010

== ENCOUNTER → 2023-03-12 | Outpatient (CLI) | payer MEDICARE, OTHER ==
[2023-03-12 17:15] LABS: ALT 111 U/L (8-44); AST 47 U/L (13-35); Albumin 4.3 d/dL (3.8-4.9); Albumin/Globulin Ratio 1.59 Ratio (1.60-3.17); Alkaline Phosphatase 144 U/L (41-126); BUN/Creat Ratio 11.78 Ratio (12.00-20.00); Blood Urea Nitrogen 10.6 mg/dL (9.0-27.0); Calcium 9.6 mg/dL (8.7-10.3); Carbon Dioxide 21.5 mmol/L (21.6-31.8); Chloride 107 mmol/L (96-109); Globulin 2.7 d/dL (1.6-3.3); Glucose 70 mg/dL (70-110); Potassium 4.8 mmol/L (3.5-5.5); Sodium 141 mmol/L (135-145); Total Bilirubin 0.4 mg/dL (0.3-1.2)
[2023-03-12 17:18] LABS: Hepatitis A Antibody IgM Nonreactive; Hepatitis B Core IgM Nonreactive; Hepatitis B Surface Antigen Nonreactive; Hepatitis C IgG Antibody Nonreactive
[2023-03-12 17:35] LABS: HCT 44.7 % (37.2-46.3); HGB 15.1 d/dL (12.0-15.0); MCH 31.1 pg (27.0-32.0); MCHC 33.8 d/dL (32.0-37.0); MCV 92.2 FL (80.0-97.0); Mean Platelet Volume 10.6 FL (9.5-12.2); NRBC Per 100 WBC 0.02 X 10*3/uL (0.00-0.01); Platelet Count 224 X 10*3/uL (140-440); RBC 4.85 X 10*6/uL (4.10-5.20); RDW 14.8 % (11.5-14.5); WBC 10.72 X 10*3/uL (4.50-10.00)
[2023-03-12 18:19] LABS: Basophils # (M) 0.11 X 10*3/uL (0.00-0.10); Eosinophils # (M) 0.64 X 10*3/uL (0.04-0.35); Lymphocytes # (M) 4.29 X 10*3/uL (0.90-5.00); Monocytes # (M) 0.21 X 10*3/uL (0.20-1.00); Neutrophils % (M) 51 %
== END | disposition home or self-care (01) ==
LOC: LABWHC1 10:28
PROVIDERS: ATTEND Nurse Practitioner Acute Care
DX: G35 Multiple sclerosis (principal); E53.9 Vitamin B deficiency, unspecified; E55.9 Vitamin D deficiency, unspecified; G43.909 Migraine, unspecified, not intractable, without status migrainosus; R41.3 Other amnesia; R53.83 Other fatigue
CPT/HCPCS: 36415; 80053; 80074; 82306; 82607; 84207; 85025